=== PATIENT | female | born 1995 | race Hispanic/Latino ===

== ENCOUNTER → 2023-12-11 | Outpatient (CLI) | payer BC, SELFPAY ==
[2023-12-11 12:23] LABS: Absolute Lymphocyte Count 1.85 X10^3/uL (0.83-4.51); Basophil# 0.04 X10^3/uL; Basophil% 0.5 % (0-1); Eosinophil# 0.12 X10^3/uL; Eosinophils% 1.6 % (0-5); Hemoglobin 12.5 g/dL (12.0-15.0); Lymphocyte # 1.85 X10^3/ul (0.83-4.51); Lymphocyte % 24.7 % (19-41); Mean Corp Hgb Conc 32.9 g/dL (32-36); Mean Corpuscular Volume 94.3 fL (81-99); Mean Platelet Vol. 11.4 fl (6.2-12.0); Monocyte# 0.44 X10^3/uL; Monocyte% 5.9 % (0-10); NRBC Flagged by Analyzer 0 % (0-5); Neutrophil # 5.02 X10^3/uL (2.7-7.7); Platelet Count 281 K/mm3 (150-450); RBC Distribution Width CV 12.5 % (11.6-14.6); RBC Distribution Width SD 43.8 fl (35.1-43.9); Red Blood Count 4.03 M/mm3 (4.2-5.4); White Blood Count 7.5 K/mm3 (4.4-11.0)
[2023-12-11 12:54] LABS: AST(SGOT) 12 U/L (15-37); Alanine Aminotransfer ALT/SGPT 17 U/L (13-56); Albumin, Serum 3.4 g/dL (3.2-5.0); Alkaline Phosphatase 42 U/L (45-117); Anion Gap 9 (5-15); BUN 9 mg/dL (7-18); BUN/Creat Ratio 11.6 RATIO (10-20); Calcium,Total 9.3 mg/dL (8.5-10.1); Chloride 106 mmol/L (98-107); Cholesterol 204 mg/dL (200); Creatinine, Serum 0.78 mg/dL (0.55-1.02); EST Glomerular Filtration Rate 92 mL/min (>60); Est Glom Filt Rate - Afr Amer 112 mL/min (>60); Globulin 3.5 g/dL (2.2-4.2); Glucose 82 mg/dL (74-106); High Density Lipoprotein 77 mg/dL; Potassium 3.9 mmol/L (3.5-5.1); Protein, Total 6.9 g/dL (6.4-8.2); Sodium Level 138 mmol/L (136-145); Triglycerides 208 mg/dL; Very Low Density Lipoprotein 42 mg/dL (5-40)
== END | disposition home or self-care (01) ==
LOC: BIMLAB 09:50
PROVIDERS: PCP Internal Medicine; Visit Provider Internal Medicine
DX: Z30.41 Encounter for surveillance of contraceptive pills (principal); E78.1 Pure hyperglyceridemia
CPT/HCPCS: 36415; 80053; 80061; 85025

== ENCOUNTER 2024-08-24 08:19 | Day surgery (SDC) | payer BC, SELFPAY ==
[2024-08-24] VITALS (15 sets, daily range): BP systolic 103–134; BP diastolic 57–82; PULSE 65–97; RESP 15–18; TEMP 36.7–37.3; O2SAT 96–100; BMI 21.1
--- NOTE | 2024-08-24 08:30 | US_ITS ---
STUDY: ULTRASOUND OF THE FEMALE PELVIS - COMPLETE REASON FOR EXAM: Female, 29 years old. Right pelvic pain -- r/o torsion LMP: August 21, 2024. TECHNIQUE: Transvaginal TECHNICAL QUALITY: Adequate. COMPARISON: None. FINDINGS: The uterus is anteverted and is in a midline position. The uterus measures 8 cm x 5.7 cm x 4 cm. Normal uterine cervix. The endometrium measures 4 mm in thickness, and is hyperechoic. There is no demonstrated endometrial mass. There is no demonstrated myometrial mass. I.U.D. - The patient does not have an I.U.D. The right ovary is visualized. The right ovary measures 4.3 cm x 3.4 cm x 1.8 cm. There is no right ovarian cyst or ovarian mass. There is no visualized right adnexal mass or complex lesion. There is normal arterial and normal venous vascularity. The left ovary is visualized. The left ovary measures 2.9 cm x 3.4 cm x 2.3 cm. There is no left ovarian cyst or ovarian mass. There is no visualized left adnexal mass or complex lesion. There is normal arterial and normal venous vascularity. Small amount of free fluid is seen surrounding the right adnexa. US/Transvaginal Non- IMPRESSION: Small amount of free fluid is seen in the right adnexa. No evidence of torsion. Electronically Signed: Levi Campos MD at 9:51 EST ,
[2024-08-24] MEDS: Ondansetron 4 MG/2 ML Vial IV (08:38)
[2024-08-24] MEDS: Morphine 4 MG/ML Syringe IV (08:38)
[2024-08-24 08:54] LABS: Mucous, Urine 0 SEEN /hpf (<or=2+)
[2024-08-24 08:56] LABS: Absolute Lymphocyte Count 2.31 X10^3/uL (0.83-4.51); Absolute Neutrophil Count 13.3 X10^3/uL (2.0-7.7); Basophil# 0.06 X10^3/uL; Basophil% 0.4 % (0-1); Eosinophil# 0.24 X10^3/uL; Eosinophils% 1.4 % (0-5); Hematocrit 40.1 % (37-47); Hemoglobin 13.4 g/dL (12.0-15.0); Lymphocyte # 2.31 X10^3/ul (0.83-4.51); Lymphocyte % 13.8 % (19-41); Mean Corp Hgb Conc 33.4 g/dL (32-36); Mean Corpuscular Hgb 30.2 pg (27.0-32.0); Mean Corpuscular Volume 90.5 fL (81-99); Mean Platelet Vol. 10.7 fl (6.2-12.0); Monocyte# 0.82 X10^3/uL; Monocyte% 4.9 % (0-10); NRBC Flagged by Analyzer 0 % (0-5); Neutrophil # 13.26 X10^3/uL (2.7-7.7); Neutrophil % 79.1 % (47-70); Platelet Count 311 K/mm3 (150-450); RBC Distribution Width CV 12.1 % (11.6-14.6); RBC Distribution Width SD 39.8 fl (35.1-43.9); Red Blood Count 4.43 M/mm3 (4.2-5.4); White Blood Count 16.8 K/mm3 (4.4-11.0)
--- NOTE | 2024-08-24 08:58 | ED.VIS.GI ---
HPI HPI - GI History of Present Illness Chief Complaint: Abd Pain Informant: patient and spouse/S.O. Narrative Narrative: Presents with a similar worsening suprapubic pain and pain to the right awaken her at 2 in the morning. Day 3 of her menstrual period typically last 5 days. No similar pains in the past. No history of ovarian issues. No fever chills or sweats. Denies any abdominal surgeries. Denies past medical history. Denies urinary symptoms. Denies history of kidney stones. Prior similar symptoms: No PFSH PFSH Home Medications ?Medication ?Instructions ?Recorded ?Last Taken ?Type bismuth subsalicylate 262 mg/15 mL 524 mg PO Q1H PRN upset stomach 08/24/24 08/24/24 History oral suspension (Digestive Relief) drospirenone 3 mg-ethinyl 1 tab PO DAILY 08/24/24 08/24/24 History estradiol 0.03 mg tablet Allergy/AdvReac Type Severity Reaction Status Date / Time No Known Allergies Allergy Verified 08/24/24 08:22 Surgical History (Updated 08/24/24 @ 14:[address] Adrian Goodman MD) S/P rhinoplasty Social History Smoking Status: Never smoker ROS ROS ED Constitutional Constitutional ED: Denies chills, fever(s) or sweats Eyes Eyes: Denies change in vision ENT ENT ED: Denies dysphagia or sore throat Cardiovascular Cardiovascular: Denies chest pain, leg edema, palpitations or racing heartbeat Respiratory/Chest Respiratory/Chest: Denies cough, dyspnea or dyspnea on exertion Gastrointestinal Gastrointestinal: Reports abdominal pain; Denies diarrhea, nausea or vomiting Genitourinary Genitourinary ED: Denies dysuria, hematuria or urinary frequency Musculoskeletal Musculoskeletal: Denies back pain, extremity pain or neck pain Integumentary Denies rash or wounds Neurologic Neurologic: Denies headache(s), paresthesias or weakness EXAM Physical Exam Const Vital Signs: 08/24/24 08:22 08/24/24 10:35 08/24/24 12:10 Temperature 98.0 F 98.2 F Temperature Source Oral Oral Pulse Rate 70 74 71 Respiratory Rate 16 15 15 Blood Pressure 121/82 H 131/69 H 134/67 H Blood Pressure Mean 95 89 89 Pulse Ox 100 96 97 Oxygen Delivery Method Room Air Room Air Room Air 08/24/24 12:44 08/24/24 14:09 Temperature 98.1 F 98.1 F Temperature Source Pulse Rate 73 73 Respiratory Rate 15 15 Blood Pressure 126/79 H 126/79 H Blood Pressure Mean 94 Pulse Ox 99 99 Oxygen Delivery Method Room Air Positive well nourished and well developed Constitutional Narrative: Uncomfortable, nontoxic General Appearance ED: well developed HEENT Reports moist mucous membranes normocephalic and atraumatic Eyes EOMs intact bilaterally and conjunctivae normal General Eye ED: Yes normal appearance of both eyes Neck no lymphadenopathy and supple General: Negative for tenderness Chest Wall Chest: Negative for tenderness Resp normal respiratory effort and normal air movement Effort and Inspection: symmetric chest movement; Negative for respiratory distress Cardio regular rate, regular rhythm and no murmurs Peripheral Pulses: pulses 2+ throughout GI normal to inspection, nondistended, normoactive bowel sounds GI Narrative: Negative Campos's or McBurney's region tenderness. Palpation: Negative for guarding or rebound tenderness present Narrative: Tender suprapubic right pelvis on exam. Back/Spine no CVA tenderness and no thoracic nor lumbar tenderness Extremity normal to inspection General Extremety ED: Negative for edema or tenderness General Extremity: Negative for edema Neuro oriented x3 and no sensory deficits noted Sensorium / Orientation: awake and alert Skin no rashes or lesions noted and no wounds MDM MDM MDM Narrative Medical decision making narrative: Interventions / MDM: Differential diagnosis: Acute appendicitis, abdominal pain Diagnosis considered but do not suspect: Ovarian torsion however ultrasound negative. Kidney stone however CT negative My EKG interpretation: Sinus rate of 50, no ST changes. T wave version V1 V2. QTc 412. Imaging independently reviewed and interpreted by myself: Transvaginal ultrasound: Per radiologist mild adnexal free fluid no torsion. 1 view chest x-ray: No acute process. CT abdomen pelvis IV contrast: thickened and dilated appendix, mild pelvic free fluid. External documents reviewed: N/A Test considered but not ordered:N/A ED course: Patient pain suprapubic pelvis right pelvic region. Symptoms started at 2 AM. IV established for labs. Morphine and Zofran. Will send for transvaginal ultrasound rule out torsion. 1000: Labs white count 16.8. Creatinine 0.8. Urine 1+ bacteria with 10 occult blood. She is on her menstrual period. Her transvaginal ultrasound negative for torsion and there is small amount of free fluid right adnexa. Exam is more comfortable however is tender in that area. Will obtain CT abdomen pelvis for further evaluation. 1100: CT scan concerning for early appendicitis with thickening and dilation of the appendix. No perforations. Preop EKG chest x-ray additional labs ordered. Discussed with on-call surgeon Dr. Colón agrees with Abdirizak at this time. She will be kept NPO. Will give her a liter normal saline bolus per recommendation from general surgery. Re-evaluation: stable Disposition discussed with patient/family/significant other: Patient and significant other Case discussed with consulting clinician: General Surgery This note was generated with [employer] dictation software. It may contain incorrect words, spelling, and punctuation that were not noted in checking the note before signing. Lab Data Attestation: I reviewed the patient's lab results. Labs: Laboratory Results - last 24 hr 08/24/24 08/24/24 08/24/24 08:35 08:49 11:05 WBC 16.8 H RBC 4.43 Hgb 13.4 Hct 40.1 MCV 90.5 MCH 30.2 MCHC 33.4 RDW Std Deviation 39.8 RDW Coeff of Prudencio 12.1 Plt Count 311 MPV 10.7 Immature Gran % (Auto) 0.400 Neut % (Auto) 79.1 H Lymph % (Auto) 13.8 L [place] % (Auto) 4.9 Eos % (Auto) 1.4 Baso % (Auto) 0.4 Absolute Neuts (auto) 13.3 H Absolute Lymphs (auto) 2.31 Nucleated RBC % 0 PT 13.5 INR 1.0 APTT 29.8 Sodium 138 Potassium 3.7 Chloride 107 Carbon Dioxide 24.0 Anion Gap 7 BUN 6 L Creatinine 0.80 Estim Creat Clear Calc 102.78 Est GFR (MDRD) Af Amer 107 Est GFR (MDRD) Non-Af 88 BUN/Creatinine Ratio 7.5 L Glucose 88 Calcium 9.4 Serum , Qual NEGATIVE Urine Color Yellow Urine Clarity Clear Urine pH 7.0 Ur Specific [place] 1.005 Urine Protein Negative Urine Glucose (UA) Normal Urine Ketones Negative Urine Occult Blood 10 H Urine Nitrite Negative Urine Bilirubin Negative Urine Urobilinogen Normal Ur Leukocyte Esterase Negative Urine RBC 0-5 SEEN Urine WBC 0-5 SEEN Ur Squamous Epith Cells 0-5 SEEN Urine Bacteria 1+ Urine Mucus 0 SEEN Blood Type O POSITIVE Antibody Screen NEGATIVE Radiography Diagnostic Testing: Clinical Impression(s) from Imaging Studies Transvaginal US 08/24/24 08:30 IMPRESSION: Small amount of free fluid is seen in the right adnexa. No evidence of torsion. Electronically Signed: Levi Campos MD at 9:51 EST , Abdomen/Pelvis CT 08/24/24 10:02 IMPRESSION: Mild thickening and mildly dilated appendix as described. Small amount of free fluid is seen in the cul-de-sac. Clinical correlation and correlation with lab results recommended to rule out early appendicitis. Electronically Signed: Levi Campos MD at 10:39 EST , Chest X-Ray 08/24/24 11:12 IMPRESSION: Normal x-ray examination of the chest. Electronically Signed: Levi Campos MD at 11:30 EST , Discharge Plan Dx/Rx/DC Orders Clinical Impression: Acute appendicitis, Abdominal pain, Pelvic pain Disposition Disposition: Acute Care Hospital [facility] Discharge Date/Time: 08/24/24 13:05
[2024-08-24 09:08] LABS: Color, Urine Yellow (Yellow); Glucose, Dipstick Normal (Normal); Ketone-Dipstick Negative (Negative); Leukocyte Esterase-Dipstick Negative /ul (Negative); Nitrite-Dipstick Negative (Negative); Occult Blood-Urine 10 /ul (Negative); Protein-Dipstick Negative (Negative); Specific Gravity, Urine 1.005 (1.002-1.030); Urine Bilirubin Dipstick Negative (Negative); Urine Clarity Clear (Clear); Urine Urobilinogen Normal (Normal)
[2024-08-24 09:15] LABS: Internal QC Validated? YES +Cl - CLEAR BKGD; Pregnancy, Serum, hCG Quali. NEGATIVE Negative
[2024-08-24 09:17] LABS: White Blood Cells 0-5 SEEN /hpf (0-5)
[2024-08-24 09:18] LABS: Anion Gap 7 (5-15); BUN 6 mg/dL (7-18); BUN/Creat Ratio 7.5 RATIO (10-20); Calcium,Total 9.4 mg/dL (8.5-10.1); Chloride 107 mmol/L (98-107); EST Glomerular Filtration Rate 88 mL/min (>60); Est Glom Filt Rate - Afr Amer 107 mL/min (>60); Estimated Creatinine Clearance 102.78 ml/min; Glucose 88 mg/dL (74-106); Potassium 3.7 mmol/L (3.5-5.1); Sodium Level 138 mmol/L (136-145)
[2024-08-24 09:18] LABS: Bacteria 1+ /hpf (None Seen); Red Blood Cells-Urine 0-5 SEEN /hpf (0-5); Squamous Epithelial Cells - UA 0-5 SEEN /hpf (5-10)
--- NOTE | 2024-08-24 10:02 | CT_ITS ---
STUDY: CT ABDOMEN AND PELVIS WITH CONTRAST REASON FOR EXAM: Female, 29 years old. RLQ/pelvic pain RADIATION DOSAGE (If Supplied By Facility): CTDIvol = ( 12.11 ) mGy, DLP = ( 394.90 ) mGycm TECHNIQUE: Transaxial images were obtained from the dome of the diaphragm to the symphysis pubis without oral contrast. IV 75mL Isovue-300 was administered. Sagittal and coronal images were reconstructed. Individualized dose optimization techniques were used for this CT. COMPARISON: Comparison is made with prior sonogram done earlier in the day. FINDINGS: The visualized lung bases are unremarkable. The visualized portions of the heart are within normal limits. Normal liver. Normal gallbladder and extrahepatic biliary system. Normal spleen. Normal pancreas. Normal bilateral adrenal glands. Normal right kidney. Normal left kidney. Normal visualized stomach. Normal small intestine. Normal colon. There is a mild degree of a single [place] wall thickening of the appendix. It is slightly dilated measuring 8.5 mm. Early appendicitis should be ruled out. Small amount of free fluid is seen in the right side of the cul-de-sac. Normal abdominal aorta. Normal inferior vena cava. Normal retroperitoneum. Normal urinary bladder. Follicles are seen in the right ovary. There is a small umbilical hernia containing fat. Normal osseous structures. CT/Abdomen/Pelvis W IV Cont ONLY IMPRESSION: Mild thickening and mildly dilated appendix as described. Small amount of free fluid is seen in the cul-de-sac. Clinical correlation and correlation with lab results recommended to rule out early appendicitis. Electronically Signed: Levi Campos MD at 10:39 EST ,
--- NOTE | 2024-08-24 10:57 | EKG12_ITS ---
Test Reason : P Blood Pressure : */* mmHG Vent. Rate : 50 BPM Atrial Rate : 50 BPM P-R Int : 158 ms QRS Dur : 86 ms QT Int : 452 ms P-R-T Axes : 64 73 60 degrees QTcB Int : 412 ms Sinus bradycardia with sinus arrhythmia Otherwise normal ECG Confirmed by ANCELMO GRAF, YUKO ([id number]), manager editorial BLAKE AVILA ([id number]) on 08/25/2024 6:39:44 AM Referred By: Confirmed By: YUKO AG MD
--- NOTE | 2024-08-24 11:12 | RAD_ITS ---
STUDY: X-RAY CHEST REASON FOR EXAM: Female, 29 years old. Preop TECHNIQUE: Single AP portable view of the chest. COMPARISON: None. FINDINGS: The lungs are clear and expanded. There is no demonstrated pleural abnormality. Normal size heart. Normal mediastinum and sayda. Normal visualized pulmonary arteries. Normal visualized aortic arch and descending thoracic aorta. Normal visualized thoracic spine. Normal visualized ribs, clavicles, and shoulders. There is no demonstrated abnormality of the visualized soft tissue structures of the upper abdomen. RAD/Chest 1 View (Portable) IMPRESSION: Normal x-ray examination of the chest. Electronically Signed: Levi Campos MD at 11:30 [facility] ,
[2024-08-24 11:42] LABS: Prothrombin Time (Protime)PT. 13.5 SECONDS (11.7-14.9)
[2024-08-24 11:43] LABS: Partial Thromboplast Time 29.8 Seconds (24.1-36.2)
[2024-08-24] MEDS: Piperacil/Tazobactam 4.5 GM in 0.9% Normal Saline (100mL MB+) 100 ML IV (11:54)
--- NOTE | 2024-08-24 12:28 | HP.PCM.SX_ITS ---
HPI - General HPI Narrative DOROTEO PALMER, is a 29 F who presents with lower abdominal pain. The pain woke her up from sleep. She describes the pain as sharp in the right lower quadrant. She denies vomiting but she did get nauseated. She denies fevers or chills. PFSH Home Medications ?Medication ?Instructions ?Recorded ?Last Taken ?Type bismuth subsalicylate 262 mg/15 mL 524 mg PO Q1H PRN upset stomach 08/24/24 08/24/24 History oral suspension (Digestive Relief) drospirenone 3 mg-ethinyl 1 tab PO DAILY 08/24/24 08/24/24 History estradiol 0.03 mg tablet Allergy/AdvReac Type Severity Reaction Status Date / Time No Known Allergies Allergy Verified 08/24/24 08:22 Social History Smoking Status: Never smoker ROS Constitutional Constitutional: Denies anorexia, chills, fatigue or fever(s) ENT HEENT: Denies abnormal hearing Cardiovascular Cardiovascular: Denies chest pain Respiratory/Chest Respiratory/Chest: Denies cough or dyspnea Gastrointestinal Gastrointestinal: Reports abdominal pain and nausea; Denies constipation, diarrhea, dysphagia or vomiting Genitourinary Genitourinary: Denies change in urinary stream Musculoskeletal Musculoskeletal: Denies abnormal gait Integumentary Integumentary: Denies jaundice or new lesions Neurologic Neurologic: Denies abnormal gait or dizziness Psychiatric Psychiatric: Denies anxiety Hematologic/Lymphatic Hematologic/Lymphatic: Denies easy bleeding Vital Signs Vital Signs Vital Signs: 08/24/24 08:22 08/24/24 10:35 08/24/24 12:10 Temperature 98.0 F 98.2 F Temperature Source Oral Oral Pulse Rate 70 74 71 Respiratory Rate 16 15 15 Blood Pressure 121/82 H 131/69 H 134/67 H Blood Pressure Mean 95 89 89 Pulse Ox 100 96 97 Oxygen Delivery Method Room Air Room Air Room Air Weight Weight: 141 lb 1.533 oz Body Mass Index (BMI) 21.1 Physical Exam Const oriented x3 and no apparent distress Resp normal respiratory effort Cardio regular rate and regular rhythm GI soft to palpation Palpation: tender RLQ Extremity normal to inspection Results Lab / Micro Data 08/24/24 08:35 08/24/24 08:35 Labs: Laboratory Results - last 24 hr 08/24/24 08:35: WBC 16.8 H, RBC 4.43, Hgb 13.4, Hct 40.1, MCV 90.5, MCH 30.2, MCHC 33.4, RDW Std Deviation 39.8, RDW Coeff of Prudencio 12.1, Plt Count 311, MPV 10.7, Immature Gran % (Auto) 0.400, Neut % (Auto) 79.1 H, Lymph % (Auto) 13.8 L, [place] % (Auto) 4.9, Eos % (Auto) 1.4, Baso % (Auto) 0.4, Absolute Neuts (auto) 13.3 H, Absolute Lymphs (auto) 2.31, Nucleated RBC % 0, Sodium 138, Potassium 3.7, Chloride 107, Carbon Dioxide 24.0, Anion Gap 7, BUN 6 L, Creatinine 0.80, Estim Creat Clear Calc 102.78, Est GFR (MDRD) Af Amer 107, Est GFR (MDRD) Non-Af 88, BUN/Creatinine Ratio 7.5 L, Glucose 88, Calcium 9.4, Serum , Qual NEGATIVE 08/24/24 08:49: Urine Color Yellow, Urine Clarity Clear, Urine pH 7.0, Ur Specific [place] 1.005, Urine Protein Negative, Urine Glucose (UA) Normal, Urine Ketones Negative, Urine Occult Blood 10 H, Urine Nitrite Negative, Urine Bilirubin Negative, Urine Urobilinogen Normal, Ur Leukocyte Esterase Negative, Urine RBC 0-5 SEEN, Urine WBC 0-5 SEEN, Ur Squamous Epith Cells 0-5 SEEN, Urine Bacteria 1+, Urine Mucus 0 SEEN 08/24/24 11:05: PT 13.5, INR 1.0, APTT 29.8 Imaging Radiology Impression Transvaginal US 08/24/24 08:30 IMPRESSION: Small amount of free fluid is seen in the right adnexa. No evidence of torsion. Electronically Signed: Levi Campos MD at 9:51 EST , Abdomen/Pelvis CT 08/24/24 10:02 IMPRESSION: Mild thickening and mildly dilated appendix as described. Small amount of free fluid is seen in the cul-de-sac. Clinical correlation and correlation with lab results recommended to rule out early appendicitis. Electronically Signed: Levi Campos MD at 10:39 EST , Chest X-Ray 08/24/24 11:12 IMPRESSION: Normal x-ray examination of the chest. Electronically Signed: Leiv Campos MD at 11:30 EST , Assessment & Plan Assessment/Plan (1) Acute appendicitis: QUALIFIERS: Acute appendicitis type: unspecified acute appendicitis type Qualified Code(s): K35.80 - Unspecified acute appendicitis PLAN: The patient has acute appendicitis on CT scan. I reviewed her images with her and discussed this with her. I recommended laparoscopic appendectomy. I discussed the risks as well as benefits. I discussed the risks including but not limited to bleeding, infection, injury other organs such as the bowel, bladder, ureter. Patient understands the risks and is willing to proceed. The patient would like to be discharged home after surgery if possible so I will see how it looks when I take it out. If she is comfortable and feeling well after surgery we may discharge her home from PACU. Jorge Luis Colón MD Pager: [facility] [address] [place] [address], [address] [place] [address] Office:
[2024-08-24] MEDS: Lactated Ringers 1,000 ML 15 ML IV (13:29)
--- NOTE | 2024-08-24 14:04 | PRE.ANES_ITS ---
ASA Classification* ASA Classification ASA Classification: 1 Assessment & Plan Anesthesia* Anesthesia Assessment Anesthesia Assessment: Discussed sedation and/or anesthesia options, risks, benefits, and alternatives with patient/parents/legal guardian/POA. Questions invited. The patient/parents/legal guardian/POA seems to understand and agrees to proceed with anesthesia plan. Reviewed the physical assessment, medical history, allergy history and patient home medications list prior to surgery/procedure/anesthetic and documented any changes. Performed airway and anesthesia risk assessments. Anesthesia Type Anesthesia Type: General History Source History Obtained from:: Patient and Chart Anesthesia Focused Assessment* Temperature: 98.1 F Pulse Rate: 73 Blood Pressure: 126/79 Respiratory Rate: 15 Pulse Ox: 99 Oxygen Delivery Method: Room Air Airway Assessment Mouth opens: >3 cm Mallampati Score: III Teeth Condition: Intact Neck Range of motion (ROM): Full ROM Focused Labs Anesthesia Preop lab: CBC WBC 16.8 K/mm3 (4.4-11.0) H 08/24/24 08:35 RBC 4.43 M/mm3 (4.2-5.4) 08/24/24 08:35 Hgb 13.4 g/dL (12.0-15.0) 08/24/24 08:35 Hct 40.1 % (37-47) 08/24/24 08:35 Plt Count 311 K/mm3 (150-450) 08/24/24 08:35 CHEMISTRY Potassium 3.7 mmol/L (3.5-5.1) 08/24/24 08:35 Sodium 138 mmol/L (136-145) 08/24/24 08:35 BUN 6 mg/dL (7-18) L 08/24/24 08:35 Creatinine 0.80 mg/dL (0.55-1.02) 08/24/24 08:35 Glucose 88 mg/dL (74-106) 08/24/24 08:35 COAG PT 13.5 SECONDS (11.7-14.9) 08/24/24 11:05 Pre-Assessment Diagnosis/Proposed Procedure Planned Operative Procedure(s): Laparoscopic appendectomy Anesthesia History Anesthesia History - regulatory associate: Anesthesia History - regulatory associate Hx Hospitalization Any Problems With Anesthesia Cholinesterase deficiency You/Your Family Experience fever (hyperthermia) with Relationship Recent Exposure to Contagious Disease Does patient have nerve stimulator Patient instructed to have device shut off --Does patient have Pacemaker or ICD? When Was Last Pacemaker Check QUESTION #4 FULL TEXT: You/Your Family Experience fever (hyperthermia) with Anesthesia Last Oral Intake Last Oral intake: Last Oral Intake NPO since Meds taken in AM with sips of water? Meds patient instructed to take am of surgery Any additional information?: Yes NPO since: 09:00 (Patient water at 9 AM) Meds taken in AM with sips of water?: Yes PONV PONV - regulatory associate: PONV - regulatory associate Female HX of Motion Sickness HX of N/V After Surgery Non-Smoker Duration of Surgery greater than 60 minutes Number of Risk Factors PONV Score Height & Weight Height & Weight: Anesthesia: Height & Weight Height 5 ft 8.5 in 08/24/24 08:22 Weight: 64 kg 08/24/24 08:22 Body Mass Index (BMI) 21.1 08/24/24 08:22 Respiratory Assessment Respiratory Assessment - regulatory associate: Respiratory Tract Infection Hx - regulatory associate Hx Respiratory Tract Infection Any additional information?: Yes Hx Respiratory Tract Infection: No STOP Sleep Apnea STOP Sleep Apnea - regulatory associate: STOP Sleep Apnea - regulatory associate Hx Hypertension Hx Sleep Apnea CPAP BIPAP Do you snore loudly (louder than talking or can be heard Do you often feel tired/ fatigued/ sleepy during daytime? Has anyone observed you stop breathing during sleep? STOP Results QUESTION #5 FULL TEXT : Do you snore loudly (louder than talking or can be heard through closed doors)? 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 Specify any problems Hx of Preganancy in last 3 Months Nurse Filling Out Transfusion & Questions: Date: Time: Patient unable to answer at this time (ie. confused, unrespo /Reproduction History /Reproductive History - regulatory associate: /Reproductive Hx- regulatory associate Hx Now Gestational Age (in weeks): EDC: Hx Hx Para Hx Section SAB No 08/24/24 08:22 Active Medications Active Medications: Current Medications Generic Name Dose Route Start Last Admin Trade Name Freq PRN Reason Stop Dose Admin Lactated Ringer's 1,000 mls @ 15 mls/hr 08/24/24 13:30 08/24/24 13:29 IV 08/30/24 02:49 15 mls/hr .Q48H YI Administration Protocol PFSH Home Medications ?Medication ?Instructions ?Recorded ?Last Taken ?Type bismuth subsalicylate 262 mg/15 mL 524 mg PO Q1H PRN upset stomach 08/24/24 08/24/24 History oral suspension (Digestive Relief) drospirenone 3 mg-ethinyl 1 tab PO DAILY 08/24/24 08/24/24 History estradiol 0.03 mg tablet Allergy/AdvReac Type Severity Reaction Status Date / Time No Known Allergies Allergy Verified 08/24/24 08:22 Surgical History (Updated 08/24/24 @ 14:[address] Adrian Goodman MD) S/P rhinoplasty Social History Smoking Status: Never smoker Review of Systems (Anesthesia) ROS Narrative System reviewed and no additional complaints, except as documented.
--- NOTE | 2024-08-24 15:00 | APP_PTH ---
PATIENT: DOROTEO LAYTON LOC: [facility] [place] U#:[id number] AGE/SX: 29/ ROOM: RE08/24/[address]: Dr. Jorge Luis Colón MD : 1995 BED: DIS: 08/24/2024 SPEC #: [id number] RECD: 08/25/24 09:12 STATUS: JONATHON BARNEYJoe #: [id number] HOLLIS: 08/24/24 15:[address]: Jorge Luis Colón DEPT: SURGICAL PATHOLOGY RECD BY: Stefanie Ashraf ENTERED: 08/25/24 10:10 SP TYPE: APPENDIX OTHR DR: Dr. Ktety Pickett MD Tissues: Appendix, NOS Procedures: Surgery Specimen Level III HEADER OPERATION: Laparoscopic appendectomy PRE-OP DIAGNOSIS: Acute appendicitis TISSUE SUBMITTED: Appendix MICROSCOPIC DIAGNOSIS Appendix, appendectomy: Acute appendicitis and periappendicitis. 08/26/2024 MICROSCOPIC DESCRIPTION Slides are reviewed. GROSS DESCRIPTION Received in fixative is one container labeled with the patient's name and designated appendix. The specimen consists of J appendix measuring 7.0 cm in length and up to 0.6 cm in diameter. The attached periappendiceal adipose tissue measures up to 1.7 cm in width. The serosa is mildly congested. No obvious perforation is identified. The lumen is filled with a small amount of hemorrhagic material. No fecalith is identified. The entire appendix is submitted in three cassettes. Cassette 1 contains the tip and proximal portion. / LEXA: 08/25/2024 TC:2 CPT: 26789
[2024-08-24] MEDS: Bupiv/Epi 0.25% 30 ML Vial (15:38)
--- NOTE | 2024-08-24 15:45 | OP.PCM_ITS ---
Operative Report (Standard) Operative Information Surgery/Procedure Performed: Laparoscopic appendectomy Surgeon: Jorge Luis Colón Date of Procedure: 08/24/24 Procedure Start Time: 15:20 Procedure Stop Time: 15:41 Pre-Operative Diagnosis: Acute appendicitis Post-Operative Diagnosis: acute appendicitis Select all DRAINS/GRAFTS/IMPLANTS that apply: None Type of Anesthesia: General/Regional Estimated Blood Loss: 5 Specimen collected: Yes Description of specimen(s) removed: Appendix Description of surgery: The patient was brought into the operating room and general anesthesia was induced. The left arm was tucked and the abdomen was prepped and draped in usual sterile fashion. A small midline incision was made superior to the umbilicus and deepened to the level of the fascia. The fascia was elevated and incised. The peritoneum was also elevated and incised. A finger sweep was performed and a balloon trocar was placed into the abdomen and inflated. The abdomen was insufflated to 15 mmHg and the camera was inserted and the abdomen was inspected for any injuries upon entering the abdomen. There were none. The patient was placed in Trendelenburg position and a 5 mm ports placed in the left lower quadrant and suprapubic areas under direct visualization. Next using atraumatic bowel graspers the appendix was identified. The appendix was grasped and elevated and Enseal was used to take down the mesoappendix. A stapler was used to come across the base of the appendix. The appendix was then placed in Endo Catch bag and removed through the umbilical incision. The staple line was inspected and found to be hemostatic and intact. The 2 5 mm ports are removed under direct visualization. The balloon trocar was deflated and removed and all the air was removed from the abdomen. The umbilical incision fascia was closed with an 0 Vicryl [id number] suture. The incisions were then irrigated with saline and dried. Local anesthetic was injected into the incision sites. The skin incisions were then closed with interrupted 4-0 Monocryl suture and Steri- Strips. Bandages were applied and the patient was awoken and taken to PACU in stable condition. Patient tolerated the procedure well. Surgical Findings: Inflamed appendix Fire Investigation Lieutenant reservationist: No Complications Complications: No Admit VTE Documentation VTE Mechan Device Prophylaxis: SCD's
--- NOTE | 2024-08-24 15:48 | DCINST_ITS ---
Discharge Instructions Procedure Appendectomy Diet Discharge Diet: Light diet - advance as tolerated Activity Discharge Activity: May Not Drive (for 2-3 days or while taking narcotic pain medications.) May shower in (days): 1 Lifting Restrictions: 20 lbs for 2 weeks Dressing / Incision Call your doctor if your incision/area has: Continuous Slow Oozing, Sudden Increased Bleeding, Increased Pain/ Swelling, Increased Redness and Foul Smelling Discharge Call your doctor if you observe: Fever of 101 or Higher Suture Line Care: Avoid Pulling/Pushing and Avoid Pinching/Bending Remove Dressing in: 2 days Cleanse incision/area with: Soap & Water Additional Dressing/Incision Instructions:: Keep dressing clean and dry. Change or remove dressing in 2 days. Leave steri strips for 1 week. May protect with a gauze bandaid. Follow Up Care Please Follow Up With: Jorge Luis Colón MD When: Please call to schedule 2 week follow up appointment. [phone] Test Results: Test results from this visit will be discussed in further detail at your follow- up appointment, if applicable. Discharge Plan Admission Attending Provider: Jorge Luis Colón Primary Care Provider: Ketty Pickett Instructions Print Language: Chinese Discharge Orders/Prescriptions Prescriptions: New oxycodone 5 mg Tablet 5 - 10 mg PO Q4H PRN PRN (Reason: Pain Score 4-10) 5 Days Qty: 20 0RF No Action drospirenone-ethinyl estradiol 3-0.03 mg tablet 1 tab PO DAILY bismuth subsalicylate [Digestive Relief] 262 mg/15 mL suspension 524 mg PO Q1H PRN (Reason: upset stomach) Rx Instructions: do not exceed 8 doses in a 24 hour period Referrals / Follow Up: NOT,DEFINED [Non-Staff] - Disposition Disposition (needs filled in before D/C Order can be placed): Home, Self Care
--- NOTE | 2024-08-24 15:52 | PCM.POST.ANE ---
Anesthesia: Postop Eval I Current Vital Signs Temperature: 98.1 F Pulse Rate: 97 Blood Pressure: 112/63 Respiratory Rate: 18 Pulse Ox: 100 Assessment Airway patent: Yes Spontaneous unlabored respirations: Yes nausea: No Vomiting: No Anesthesia Complication: No Fluid Hydration Crystalloid volume administer (ml): 1,000 Total IV fluid infused: 1,000 Progress Note Anesthesia document: Postop Eval 1 completed: Yes
[2024-08-24] MEDS: oxyCODONE 5 MG Tablet PO (17:12)
--- NOTE | 2024-08-25 06:36 | POSTOPAN2_ITS ---
Anesthesia Postop Eval I Sum Postop Eval Completion status Anesthesia document: Postop Eval 1 completed: Yes Anesthesia Postop Eval I Summary Anesthesia Postop Eval I Summary: Anesthesia Postop Eval I: Assessment Summary Airway patent Yes 08/24/24 15:52 ROLLED SEAT [email or web address] Spontaneous unlabored Yes 08/24/24 15:52 ROLLED SEAT [email or web address] respirations Mental status nausea No 08/24/24 15:52 ROLLED SEAT [email or web address] Vomiting No 08/24/24 15:52 ROLLED SEAT [email or web address] Anesthesia Postop Eval I: Fluid Summary Crystalloid volume administer 1,000 08/24/24 15:52 ROLLED SEAT [email or web address] (ml) Colloids volume administered ( ml) Blood Product volume administered (ml) Total IV fluid infused 1,000 08/24/24 15:52 ROLLED SEAT [email or web address] Anesthesia Postop Eval I: Summary Notes Anesthesia Complication No 08/24/24 15:52 ROLLED SEAT [email or web address] Anesthesia Complication Comment: Post-operative progress note Anesthesia: Postop Eval II Evaluation Mental status: Awake Pain Level: 0 nausea: No Vomiting: No
--- NOTE | 2024-08-25 06:36 | PCM.POSTANE2 ---
Anesthesia Postop Eval I Sum Postop Eval Completion status Anesthesia document: Postop Eval 1 completed: Yes Anesthesia Postop Eval I Summary Anesthesia Postop Eval I Summary: Anesthesia Postop Eval I: Assessment Summary Airway patent Yes 08/24/24 15:52 [email or web address] Spontaneous unlabored Yes 08/24/24 15:52 PIGGYBACK [email or web address] respirations Mental status nausea No 08/24/24 15:52 PIGGYBACK [email or web address] Vomiting No 08/24/24 15:52 PIGGYBACK [email or web address] Anesthesia Postop Eval I: Fluid Summary Crystalloid volume administer 1,000 08/24/24 15:52 [email or web address] (ml) Colloids volume administered ( ml) Blood Product volume administered (ml) Total IV fluid infused 1,000 08/24/24 15:52 [email or web address] [email or web address] Anesthesia Postop Eval I: Summary Notes Anesthesia Complication No 08/24/24 15:52 [email or web address] [email or web address] Anesthesia Complication Comment: Post-operative progress note Anesthesia: Postop Eval II Evaluation Mental status: Awake Pain Level: 0 nausea: No Vomiting: No
== END 2024-08-24 18:13 | disposition home or self-care (01) ==
LOC: ED 11:10 → SDC 12:06 → ACINP 12:07
PROVIDERS: Emergency Provider Emergency Medicine; PCP Internal Medicine; Visit Provider Surgery
PROC: 0DTJ4ZZ Resection of Appendix, Percutaneous Endoscopic Approach (ICD-10-PCS; CPT 44970; principal; 2024-08-24 14:40)
DX: K35.80 Unspecified acute appendicitis (principal)
CPT/HCPCS: 44970; 00840; 71045; 74177; 76830; 80048; 81001; 84703; 85025; 85610; 85730; 86850; 86900; 86901; 88304; 93005; 93976; 99283; J7040; J7120; Q9967; A4216; C1760; J2405

== ENCOUNTER → 2025-02-15 | Outpatient (CLI) | payer BC, SELFPAY ==
[2025-02-15 12:31] LABS: Absolute Neutrophil Count 3.9 X10^3/uL (2.0-7.7); Basophil# 0.03 X10^3/uL; Basophil% 0.5 % (0-1); Eosinophil# 0.09 X10^3/uL; Eosinophils% 1.4 % (0-5); Hematocrit 38.7 % (37-47); Hemoglobin 12.8 g/dL (12.0-15.0); Lymphocyte % 30.5 % (19-41); Mean Corp Hgb Conc 33.1 g/dL (32-36); Mean Corpuscular Hgb 29.4 pg (27.0-32.0); Mean Corpuscular Volume 88.8 fL (81-99); Mean Platelet Vol. 11.5 fl (6.2-12.0); Monocyte# 0.57 X10^3/uL; Monocyte% 8.7 % (0-10); NRBC Flagged by Analyzer 0 % (0-5); Neutrophil # 3.86 X10^3/uL (2.7-7.7); Neutrophil % 58.7 % (47-70); Platelet Count 288 K/mm3 (150-450); RBC Distribution Width CV 10.9 % (11.6-14.6); RBC Distribution Width SD 35.5 fl (35.1-43.9); Red Blood Count 4.36 M/mm3 (4.2-5.4); White Blood Count 6.6 K/mm3 (4.4-11.0)
[2025-02-15 12:50] LABS: ALB/GLOB Ratio 1.5 RATIO (0.9-2.4); AST(SGOT) 13 U/L (<=31); Alanine Aminotransfer ALT/SGPT 16 U/L (<=34); Albumin, Serum 4.2 g/dL (3.5-5.0); Alkaline Phosphatase 73 U/L (35-104); Anion Gap 10 (5-15); BUN 11 mg/dL (4-19); BUN/Creat Ratio 20.1 RATIO (10-20); Calcium,Total 10.2 mg/dL (7.6-11.0); Carbon Dioxide 22.6 mmol/L (21.0-32.0); Chloride 105 mmol/L (98-108); Creatinine, Serum 0.56 mg/dL (0.70-1.20); EST Glomerular Filtration Rate 125 (>60); Globulin 2.8 g/dL (2.2-4.2); Glucose 93 mg/dL (70-99); Potassium 4.7 mmol/L (3.3-5.1); Protein, Total 7.1 g/dL (5.9-8.4); Sodium Level 138 mmol/L (133-145); Thyroid Stim Hormone (TSH) < 0.005 uIU/mL (0.300-4.200)
== END | disposition home or self-care (01) ==
LOC: BIMLAB 10:50
PROVIDERS: PCP Internal Medicine; Referring Provider Internal Medicine; Visit Provider Internal Medicine
DX: R00.2 Palpitations (principal)
CPT/HCPCS: 36415; 80053; 84439; 84443; 84482; 85025

== ENCOUNTER → 2025-02-20 | Outpatient (CLI) | payer SELFPAY, BC ==
--- NOTE | 2025-02-20 10:50 | US_ITS ---
PROCEDURE: THYROID 02/20/2025 REASON FOR EXAM: ABNORMAL THYROID FUNCTION/HYPERTHYROIDISM TECHNIQUE: High-frequency thyroid ultrasound, including grayscale and color-flow images. REFERENCE LINKS: TI-RADS Chart: [email or web address] TI-RADS Calculator Tool with Reference Images: [email or web address] COMPARISON: None FINDINGS: Right thyroid lobe size: 5.3 cm x 2 cm x 1.7 cm Left thyroid lobe size: 5.4 cm x 1.6 cm x 1.7 cm Isthmus: 0.5 cm Background parenchymal echotexture is heterogeneous Nodules: Multiple bilateral small predominantly cystic nodule seen throughout both lobes of the thyroid suggestive of multinodular changes. US/Thyroid IMPRESSION: Findings suggestive of enlarged thyroid with multiple nodular densities bilater ally. Correlation with nuclear medicine uptake and thyroid scan recommended. RECOMMENDATION: Based on most suspicious nodule. Nodule size = largest diameter Only evaluate nodule if =>5 mm. Growth > 20% in 2 dimensions = worsening. Follow up to 4 nodules. Recommend biopsy for no more than 2 nodules. Reading Location: [facility]
== END | disposition home or self-care (01) ==
PROVIDERS: PCP Internal Medicine; Referring Provider Internal Medicine; Visit Provider Internal Medicine
DX: E05.90 Thyrotoxicosis, unspecified without thyrotoxic crisis or storm (principal); R94.6 Abnormal results of thyroid function studies
CPT/HCPCS: 76536

== ENCOUNTER → 2025-03-09 | Outpatient (CLI) | payer BC, SELFPAY ==
[2025-03-09 12:54] LABS: Free T3 5.6 pg/mL (2.18-3.98); Thyroid Stim Hormone (TSH) 0.006 uIU/mL (0.300-4.200)
[2025-03-11 08:08] LABS: Thyroid Peroxidase AB 365 IU/mL (0-34)
== END | disposition home or self-care (01) ==
LOC: BIMLAB 07:58
PROVIDERS: PCP Internal Medicine; Referring Provider Internal Medicine Endocrinology, Diabetes & Metabolism; Visit Provider Internal Medicine Endocrinology, Diabetes & Metabolism
DX: E05.90 Thyrotoxicosis, unspecified without thyrotoxic crisis or storm (principal)
CPT/HCPCS: 36415; 84439; 84443; 84481; 86376

== ENCOUNTER → 2025-03-29 | Outpatient (CLI) | payer BC, SELFPAY ==
[2025-03-29 12:55] LABS: Free T3 3.3 pg/mL (2.18-3.98); Thyroid Stim Hormone (TSH) 0.006 uIU/mL (0.300-4.200)
== END | disposition home or self-care (01) ==
LOC: BIMLAB 08:36
PROVIDERS: PCP Internal Medicine; Referring Provider Internal Medicine Endocrinology, Diabetes & Metabolism; Visit Provider Internal Medicine Endocrinology, Diabetes & Metabolism
DX: E05.00 Thyrotoxicosis with diffuse goiter without thyrotoxic crisis or storm (principal)
CPT/HCPCS: 36415; 84439; 84443; 84481

== ENCOUNTER → 2025-04-09 | Outpatient (CLI) | payer BC, SELFPAY ==
[2025-04-09 13:25] LABS: Free T3 3.5 pg/mL (2.18-3.98); Thyroid Stim Hormone (TSH) 0.008 uIU/mL (0.300-4.200)
== END | disposition home or self-care (01) ==
LOC: BIMLAB 10:28
PROVIDERS: PCP Internal Medicine; Referring Provider Internal Medicine Endocrinology, Diabetes & Metabolism; Visit Provider Internal Medicine Endocrinology, Diabetes & Metabolism
DX: E05.00 Thyrotoxicosis with diffuse goiter without thyrotoxic crisis or storm (principal)
CPT/HCPCS: 36415; 84439; 84443; 84481

== ENCOUNTER → 2025-04-21 | Outpatient (CLI) | payer BC, SELFPAY ==
[2025-04-26 16:09] LABS: HPV APTIMA, High Risk Negative (Negative)
== END | disposition home or self-care (01) ==
PROVIDERS: PCP Internal Medicine; Referring Provider Advanced Practice Midwife; Visit Provider Advanced Practice Midwife
DX: Z12.4 Encounter for screening for malignant neoplasm of cervix (principal)
CPT/HCPCS: 87624; 88175; G0145

== ENCOUNTER → 2025-05-10 | Outpatient (CLI) | payer BC, SELFPAY ==
[2025-05-10 13:34] LABS: Free T3 2.5 pg/mL (2.18-3.98)
--- OUTSIDE RECORDS SUMMARY | 2025-05-10 20:29 | XMS RPT_ITS | CCD ---
Author Organization [facility] CliniSysd Care Team Providers Care Public Speaking Professor Name Role Phone Dr. Ketty Pickett Attending Provider [phone] Nieves GRAF, Dr. Hdez Primary Care Provider [phone] Nieves GRAF, Dr. Hdez Referring Provider Juan GRAF, Dr. Vaughan Attending Provider [phone] Juan GRAF, Dr. Vaughan Primary Care Provider Juan GRAF, Dr. Vaughan Referring Provider [phone] King HOMAR, Dr. Shaw Attending Provider Dr. Colin Jim MD Referring Provider Amilcar GRAF, Dr. Vallejo Attending Provider Stacey Marquis CNM Attending Provider Stacey Marquis CNM Referring Provider Ramon ENGINEERED WOOD DESIGNER-CInés Attending Provider [phone] Oleghe, Efewongbe Primary Care Unavailable Colin Jim Referring Unavailable Colin Jim Attending Unavailable Oleghe, Efewongbe Primary Care Unavailable Oleghe, Efewongbe Referring Unavailable Oleghe, Efewongbe Attending Unavailable Oleghe, Efewongbe Primary Care Unavailable Oleghe, Efewongbe Referring Unavailable Stacey Marquis Attending Unavailable Oleghe, Efewongbe Primary Care Unavailable Oleghe, Efewongbe Referring Unavailable Inés Navarro Attending Unavailable Oleghe, Efewongbe Primary Care Unavailable Oleghe, Efewongbe Referring Unavailable Genevieve Fitzgerald Attending Unavailable Oleghe, Efewongbe Primary Care Unavailable Hernán, Colin Referring Unavailable Hernán, Colin Attending Unavailable Oleghe, Efewongbe Primary Care Unavailable Oleghe, Efewongbe Referring Unavailable Hernán, Colin Attending Unavailable Oleghe, Efewongbe Primary Care Unavailable Oleghe, Efewongbe Referring Unavailable Oleghe, Efewongbe Attending Unavailable Oleghe, Efewongbe Primary Care Unavailable Oleghe, Efewongbe Referring Unavailable Oleghe, Efewongbe Attending Unavailable Jorge Luis Colón Attending Unavailable Fordyce, Ketty Primary Care Unavailable Oleghe, Efewongbe Primary Care Unavailable Oleghe, Efewongbe Referring Unavailable Oleghe, Efewongbe Attending Unavailable Jorge Luis Colón Consulting Unavailable Fordyce, Ketty Primary Care Unavailable CalabrJorge Luis cortes Attending Unavailable Fordyce, Ketty Referring Unavailable Fordyce, Ketty Primary Care Unavailable CalabrJorge Luis cortes Attending Unavailable Fordyce, Ketty Primary Care Unavailable Nieves, Ketty Referring Unavailable Oleghe, Efewongbe Attending Unavailable Oleghe, Efewongbe Primary Care Unavailable Hernán, Colin Referring Unavailable Hernán, Colin Attending Unavailable Oleghe, Efewongbe Primary Care Unavailable Hernán, Colin Referring Unavailable Hernán, Colin Attending Unavailable Stacey Marquis Referring Unavailable Oleghe, Efewongbe Primary Care Unavailable Stacey Marquis Attending Unavailable Allergies Allergy Classification Reported Allergen(s) Allergy Type Date of Onset Reaction(s) Facility (10 sources) cat dander; Translations: [cat dander] Allergy to substance 12-11-2023 Other [facility] Comment on above: inflammation of eyes , and nose Medications Current Medications Medication Drug Class(es) Dates Sig (Normalized) Sig (Original) adapalene (8 sources) Retinoid Start: 02-15-2025 Adapalene 0.3 % gel Active 1 NMA TOPICAL EVERY EVENING 45 February 15, 2025 12:00am Start: 02-15-2025 Adapalene 0.3 % gel Active 1 NMA TOPICAL EVERY EVENING 45 February 15, 2025 12:00am clindamycin 0.01 mg/mg topical gel (8 sources) Lincosamide Antibacterial Start: 02-15-2025 Clindamycin Phosphate 1 % gel Active 1 NMA TOPICAL every day in the morning and at bedtime 60 February 15, 2025 12:00am methIMAzole 5 mg oral tablet (20 sources) Thyroid Hormone Synthesis Inhibitor Start: 03-09-2025 take 3 tablets by mouth once daily Methimazole 5 mg tablet Active 15 mg PO daily 90 March 09, 2025 1:03pm Start: 02-22-2025 End: 03-09-2025 take 1 tablet by mouth twice daily Methimazole 5 mg tablet Discontinued 5 mg PO TWICE A DAY 60 February 22, 2025 11:48am March 09, 2025 1:04pm Start: 02-17-2025 End: 02-22-2025 take 1 tablet by mouth once daily Methimazole 5 mg tablet Discontinued 5 mg PO daily 30 February 17, 2025 12:00am February 22, 2025 11:49am Mileva (1 source) Start: 12-11-2023 Mileva Active PO DAILY December 11, 2023 12:00am Completed/Discontinued Medications Medication Drug Class(es) Dates Sig (Normalized) Sig (Original) bismuth subsalicylate 17.5 mg/ml oral suspension (8 sources) Bismuth Start: 08-24-2024 End: 02-22-2025 Bismuth Subsalicylate (Digestive Relief) 262 mg/15 mL suspension Discontinued 524 mg PO Q1H as needed for upset stomach August 24, 2024 1:00am February 22, 2025 10:18am do not exceed 8 doses in a 24 hour period Drospirenone-Ethinyl Estradiol (20 sources) Progestin, Estrogen Start: 10-12-2024 End: 02-15-2025 take 1 tablet by mouth once daily Drospirenone-Ethinyl Estradiol 3-0.03 mg tablet Discontinued 1 {tbl} PO DAILY 84 0 October 12, 2024 12:00pm February 15, 2025 8:55am Uses oral contraceptives Encounter for surveillance of contraceptive pills Start: 10-12-2024 End: 02-15-2025 Drospirenone-Ethinyl Estradi ol 3-0.03 mg tablet Discontinued 1 {tbl} PO DAILY 84 October 12, 2024 12:00pm February 15, 2025 8:55am Start: 08-24-2024 End: 02-15-2025 Drospirenone-Ethinyl Estradi ol 3-0.03 mg tablet Discontinued 1 {tbl} PO DAILY August 24, 2024 1:00am February 15, 2025 8:55am Start: 01-14-2024 End: 10-12-2024 take 1 tablet by mouth once daily Drospirenone-Ethinyl Estradiol 3-0.03 mg tablet Discontinued 1 {tbl} PO DAILY 10 03January 14, 2024 4:39pm October 12, 2024 12:01pm Uses oral contraceptives Encounter for surveillance of contraceptive pills Start: 01-14-2024 End: 10-12-2024 Drospirenone-Ethinyl Estradi ol 3-0.03 mg tablet Discontinued 1 {tbl} PO DAILY January 14, 2024 4:39pm October 12, 2024 12:01pm Start: 12-11-2023 End: 01-14-2024 take 1 tablet by mouth once daily Drospirenone-Ethinyl Estradiol 3-0.03 mg tablet Discontinued 1 {tbl} PO DAILY December 11, 2023 1:00am January 14, 2024 4:40pm Uses oral contraceptives Encounter for surveillance of contraceptive pills Start: 12-11-2023 End: 01-14-2024 Drospirenone-Ethinyl Estradi ol 3-0.03 mg tablet Discontinued 1 {tbl} PO DAILY December 11, 2023 1:00am January 14, 2024 4:40pm Start: 12-11-2023 take 1 tablet by [facility] once daily Drospirenone-Ethinyl Estradiol Active 1 TABLET PO DAILY December 11, 2023 12:00am Mileva 35 mg (8 sources) Start: 12-11-2023 End: 02-15-2025 take 35 mg by mouth once daily Mileva 35 mg Discontinued PO DAILY December 11, 2023 1:00am February 15, 2025 8:55am oxyCODONE hydrochloride 5 mg oral tablet (8 sources) Opioid Agonist Start: 08-24-2024 End: 02-15-2025 take 5-10 mg by mouth every four hours as needed for pain Oxycodone 5 mg Tablet Discontinued 5 - 10 mg PO EVERY 4 HOURS NEEDED as needed for Pain Score 4-10 20 5 0 August 24, 2024 February 15, 2025 8:55am Acute appendicitis Unspecified acute appendicitis Problems Active Problems Problem Classification Problem Date Documented Date Episodic/Chronic Administrative/social admission (1 source) Persons encountering health services in other specified circumstances; Translations: [Other reasons for seeking consultation] 12-11-2023 Episodic Allergic reactions (9 sources) Allergic condition; Translations: [Allergy, unspecified, initial encounter] 12-11-2023 Episodic Asthma (9 sources) Asthma; Translations: [Unspecified asthma, uncomplicated] 12-11-2023 Chronic Cardiac dysrhythmias (18 sources) Palpitations; Translations: [Palpitations] Onset: 02-17-2025 02-15-2025 Episodic Contraceptive and procreative management (20 sources) Encounter for surveillance of contraceptive pills; Translations: [Surveillance of contraceptive pill] Onset: 04-21-2025 12-11-2023 Episodic Disorders of lipid metabolism (1 source) Pure hyperglyceridemia; Translations: [Pure hyperglyceridemia] 12-11-2023 Chronic Immunizations and screening for infectious disease (1 source) Encounter for immunization; Translations: [Need for prophylactic vaccination and inoculation against unspecified single disease] 12-11-2023 Episodic Mood disorders (2 sources) Depressive disorder; Translations: [Depression] 05-10-2025 Chronic Comment on above: PHQ9 done 11 GAD7 do ne 9. Pt follows [facility] for therapy. Other circulatory disease (16 sources) Carotid bruit; Translations: [Other specified symptoms and signs involving the circulatory and respiratory systems] 02-15-2025 Episodic Other circulatory disease (2 sources) Other specified symptoms and signs involving the circulatory and respiratory systems; Translations: [Other specified symptoms and signs involving the circulatory and respiratory systems] Onset: 02-15-2025 Episodic Other connective tissue disease (1 source) Other symptoms and signs involving the musculoskeletal system; Translations: [Other symptoms involving head and neck] 12-11-2023 Episodic Other non-traumatic joint disorders (1 source) Stiffness of unspecified ankle, not elsewhere classified; Translations: [Stiffness of joint, not elsewhere classified, ankle and foot] 12-11-2023 Episodic Other screening for suspected conditions (not mental disorders or infectious disease) (2 sources) Thyroid function tests abnormal; Translations: [Abnormal results of thyroid function studies] Onset: 04-28-2025 02-15-2025 Episodic Other skin disorders (16 sources) Acne; Translations: [Acne, unspecified] 02-15-2025 Episodic Thyroid disorders (17 sources) Hyperthyroidism; Translations: [Thyrotoxicosis, unspecified without thyrotoxic crisis or storm] Onset: 03-16-2025 02-15-2025 Chronic Unclassified (20 sources) General counseling and advice for procreative management; Translations: [Z31.69 - Encounter for other general counseling and advice on procreation] Past or Other Problems Problem Classification Problem Date Documented Da te Episodic/Chronic Abdominal pain (17 sources) Pain in pelvis; Translations: [Pelvic and perineal pain] Onset: 09-23-2024 09-04-2024 Episodic Appendicitis and other appendiceal conditions (9 sources) Acute appendicitis; Translations: [Unspecified acute appendicitis] Onset: 09-23-2024 09-04-2024 Episodic Results Test Name Value Interpretation Reference Range Facility Free T3on 05-10-2025 Free T3 [Mass/Vol] 2.5 pg/mL Normal 2.18-3.[address] [facility] Comment on above: Performed By: #### L 506.0400, L501.04905, L501.9520 #### [facility] [address] [place], [place], [address] Internal Medicine Office Vis iton 05-10-2025 Internal Medicine Office Visit [facility] [place] [address] [place] [address] OFFICE VISIT Date of Service: 05/10/25 MR#: [id number] Acct: [id number] Name: NOY LAYTON Rep #: [id number] : 1995 Provider: HUDSON jarrett Age/Sex: 30/F Location[facility] Status: Signed Intake Vital Signs 04/21/25 08:27 05/10/25 09:22 Height 5 ft 8 in 5 ft 8 in Weight: 142 lb BMI 21.6 BP 106/54 L Blood Pressure Location Lt brachial Position Sitting Respiration 16 Pulse 86 Pulse Source Monitor Temp 98.7 F Temp Source Temporal Pulse Oximetry (%) 97 Oxygen Delivery Method room air Intake Visit Reasons: ACUTE- DEPRESSION Chief Complaint: depression Washing Machine Loader Required: No Is patient in pain?: No Allergies cat dander Allergy (Mild, Verified 05/10/25 09:06) Other Medications ???Medication ???Instructions ???Recorded ???Confirmed ???Type adapalene 0.3 % topical gel 1 applic topical QPM #45 grams 03/0705/10/25 Rx clindamycin phosphate 1 % topical 1 applic topical QAM AND QHS #60 02/15/25 05/10/25 Rx gel grams methimazole 5 mg tablet 15 mg (3 x 5 mg) PO QDAY #90 tabs 03/09/25 05/10/25 Rx sertraline 50 mg tablet (Zoloft) 50 mg PO QDAY #30 tabs 05/10/25 Rx Nurse's Note: Pt states that she was diagnosed in october of this year w/ depression. She Saw Polly Cody a psychologist through online benefit through employer at [employer]. Pt has not followed w/ her in a couple of months as she graduated the program Pt feels in February when she got the dx of graves disease the depression came back. Pt was not on any meds in the past, pt states that she has lack of motivation to do anything even things she typically enjoys doing, she has issues w/ racing thoughts and getting to sleep, she has crying spells out of nowhere. pt Has an upcoming appointment to see the phycologist again, but she does not see a shed workers supervisor to prescribe meds and would like pcp to manage. Pt has upcoming appointment w/ Dr. Jim as she is not certain if it is caused to meds for graves disease. [facility] Medical History Thyrotoxicosis due to Graves' disease Acne Pre-conception counseling Bruit of left carotid artery Palpitations Acute appendicitis Abdominal pain Pelvic pain Dislocated jaw Vision problems High triglycerides Allergies Rib fracture Asthma Surgical History History of laparoscopic appendectomy No pertinent past surgical history S/P rhinoplasty Family History (Updated 05/10/25 @ 09:07 by Amanda Campa MA) Mother Asthma PVC (premature ventricular contraction) Brother Asthma Arrhythmia afib Grandmother Hypertension Grandmother Hypertension Father Hepatitis Social History adopted: No household members: spouse housing: house number of children: 0 current occupational status: employed current occupation: [employer] current occupational exposures/hazards: No pets and animals: No leisure activities: other history of recent travel: No sexually active: Yes Smoking Status: Never smoker Electronic Cigarette Use: not used second hand exposure: No alcohol intake: current alcohol intake frequency: a few times a month substance use type: does not use well-balanced diet: daily or most days caffeine: No eating out: 1-3 times/week during the past year weight has: remained stable frequency: 3-4 times per week seatbelt use: always do you feel safe at home: Yes additional social history: - [employer] Questionnaire PQH-9 BMS Over the last 2 weeks, how often have you been bothered by any of the following problems? 1. Little interest or pleasure in doing things: nearly every day 2. Feeling down, depressed, or hopeless: nearly every day 3. Trouble falling or staying asleep, or sleeping too much: several days 4. Feeling tired or having little energy: nearly every day 5. Poor appetite or overeating: not at all 6. Feeling bad about yourself - or that you are a failure or have let yourself and your family down: several days 7. Trouble concentrating on things, such as reading the newspaper or watching television: nearly every day 8. Moving or speaking so slowly that other people could have noticed? - Or the opposite - being so fidgety or restless that you have been moving around a lot more than usual: not at all 9. Thoughts that you would be better off or of hurting yourself in some way: not at all Total score: 14 If you checked off any problems, how difficult have these problems made it for you to do your work, take care of things at home, or get along with other people?: somewhat di (more content not included)... Normal [facility] T4 Free Directon 05-10-2025 T4 FREE DIRECT 0.80 ng/dL Normal 0.76-1.46 [facility] Comment on above: Performed By: #### L 506.0400, L501.73785, L501.9520 #### [facility] [address] [place], [address] Thyroid Stim Hormone (TSH)on 05-10-2025 TSH 0.361 uIU/mL Normal 0.300-4.200 [facility] Comment on above: Performed By: #### L 506.0400, L501.73403, L501.9520 #### [facility] [address] [place], [address] PAP IG HPV APTIMA 16/18,45on 04-26-2025 ADEQ Comment Normal . [facility] Comment on above: Order Comment: Speci men Comment: [id number] Specimen Comment: No. of containers..01 ThinPrep Vial Result Comment: Sati sfactory for evaluation. No endocervical component is identified. Performed By: #### L 7400.0280 #### [facility] [address] [place], [address] COMM . Normal . [facility] Comment on above: Order Comment: Speci men Comment: [id number] Specimen Comment: No. of containers..01 ThinPrep Vial Performed By: #### L 7400.0280 #### [facility] [address] [place], [address] COMMENT Comment Normal . [facility] Comment on above: Order Comment: Speci men Comment: [id number] Specimen Comment: No. of containers..01 ThinPrep Vial Result Comment: This liquid based ThinPrep(R) pap test was screened with the use of an image guided system. Performed By: #### L 7400.0280 #### [facility] [address] [place], [address] DIAG Comment Normal . [facility] Comment on above: Order Comment: Speci men Comment: [id number] Specimen Comment: No. of containers..01 ThinPrep Vial Result Comment: NEGA TIVE FOR INTRAEPITHELIAL LESION OR MALIGNANCY. Performed By: #### L 7400.0280 #### [facility] [address] [place], [place], [address] [phone] HPV APTIMA, HR Negative Normal Negative [facility] Comment on above: Order Comment: Speci men Comment: [id number] Specimen Comment: No. of containers..01 ThinPrep Vial Result Comment: This nucleic acid amplification test detects fourteen high- risk HPV types (16,18,31,33,35,39,45,51,52,56,58,59,66,68) without differentiation. Performed By: #### L 7400.0280 #### [facility] [address] [place], [place], [address] HPV Denisa Rfx Comment Normal . [facility] Comment on above: Order Comment: Speci men Comment: [id number] Specimen Comment: No. of containers..01 ThinPrep Vial Result Comment: Crit eria not met, HPV Genotype not performed. Performed at: - [address] [id number] Legislative Director: Kaci Boone MD, Phone: [phone] Performed at: = - [address] [id number] Legislative Director: Kaci Boone MD, Phone: [phone] Performed By: #### L 7400.0280 #### [facility] [address] [place], [place], [id number] PAPSMR Comment Normal . [facility] Comment on above: Order Comment: [facility] Comment: [id number] Specimen Comment: No. of containers..01 ThinPrep Vial Result Comment: The Pap smear is a screening test designed to aid in the detection of premalignant and malignant conditions of the uterine cervix. It is not a diagnostic procedure and should not be used as the sole means of detecting cervical cancer. Both false-positive and false-negative reports do occur. Performed By: #### L 7400.0280 #### [facility] [address] [place], [address] PERFORM Comment Normal . [facility] Comment on above: Order Comment: Speci men Comment: [id number] Specimen Comment: No. of containers..01 ThinPrep Vial Result Comment: Ry Villanueva, Wood Veneer Taper (ASCP) Performed By: #### L 7400.0280 #### [facility] [address] [place], [address] Cervical or vaginal specimen microscopic examination by liquid based cytology (reportOrdered By: Stacey Marquis on 04-21-2025 Cytology report Cyto stain.thin prep Doc (Cvx/Vag) Comment . [facility] Comment on above: Criteria not met, HP V Genotype not performed.Performed at: [facility] [address] [id number] Director: Kaci Boone MD, Phone: [phone] at: =[facility] [address] [id number] Director: Kaci Boone MD, Phone: [phone] Cervical or vagninal specime n microscopic examination by cytology stain (reported asOrdered By: Stacey Marquis on 04-21-2025 Cytology report Cyto stain Doc (Cvx/Vag) Comment . [facility] Comment on above: The Pap smear is a s creening test designed to aid in thedetection of premalignant and malignant conditions of theuterine cervix. It is not a diagnostic procedure andshould not be used as the sole means of detecting cervicalcancer. Both false-positive and false-negative reports dooccur. Detection in cervical specim en of any of human papilloma virus (HPV) 16, 18, 31, 33,Ordered By: Stacey Marquis on 04-21-2025 HPV 16+18+31+33+35+39+45+51+5 2+56+58+59+66+68 DNA Probe+sig amp Ql (Cvx) Negative Negative [facility] Comment on above: This nucleic acid am plification test detects fourteen high-risk HPV types (16,18,31,33,35,39,45,51,52,56,58,59,66,68)without differentiation. Laboratory - CytologyOrdered By: Stacey Marquis on 04-21-2025 Wood Veneer Taper Cyto stain Nom (Cvx/Vag) [ID] Comment . [facility] Comment on above: Tip Escobar ytologist (ASCP) Laboratory - Miscellaneous t estsOrdered By: Stacey Marquis on 04-21-2025 Service comment (Unsp spec) [Interp] . . [facility] No Panel InformationOrdered By: Stacey Marquis on 04-21-2025 Pap Smear Specimen Adequacy Comment . [facility] Comment on above: Satisfactory for karen luation. No endocervical component is identified. Community [facility] Specialist Office Visit Reporton 04-21-2025 Community Health Specialist Office Visit Report [facility] [address], [address] [place] [address] OFFICE VISIT Date of Service: 04/21/25 MR#: [id number] Acct: [id number] Name: HILTON PALMER,NOY Rep #: [id number] : 1995 Provider: HIREN Uribe ams Age/Sex: 30/F [place] 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 Is patient in pain?: No Allergies cat dander Allergy (Mild, Verified 04/21/25 08:24) Other Medications ???Medication ???Instructions ???Recorded ???Confirmed ???Type adapalene 0.3 % topical gel 1 applic topical QPM #45 grams 03/0704/21/25 Rx clindamycin phosphate 1 % topical 1 applic topical QAM AND QHS #60 02/15/25 04/21/25 Rx gel grams methimazole 5 mg tablet 15 mg (3 x 5 mg) PO QDAY #90 tabs 03/09/25 04/21/25 Rx Is last menstrual period known: Yes Last Menstrual Period: 04/12/25 Post menopausal: No Patient : No : No Do you think of yourself as: straight/heterosexu al Current gender identity: female Control Method: none PFSH Medical History Thyrotoxicosis due to Graves' disease Acne Pre-conception counseling Bruit of left carotid artery Palpitations Acute appendicitis Abdominal pain Pelvic pain Dislocated jaw Vision problems High triglycerides Allergies Rib fracture Asthma Surgical History History of laparoscopic appendectomy No pertinent past surgical history S/P rhinoplasty Family History Mother Asthma Arrhythmia afib Brother Asthma Arrhythmia afib Grandmother Hypertension Grandmother Hypertension Father Hepatitis Social History adopted: No household members: spouse housing: house number of children: 0 current occupational status: employed current occupation: [employer] current occupational exposures/hazards: No pets and animals: No leisure activities: other history of recent travel: No sexually active: Yes Smoking Status: Never smoker Electronic Cigarette Use: not used second hand exposure: No alcohol intake: current alcohol intake frequency: a few times a month substance use type: does not use well-balanced diet: daily or most days caffeine: No eating out: 1-3 times/week during the past year weight has: remained stable frequency: 3-4 times per week seatbelt use: always do you feel safe at home: Yes additional social history: - Remington MOLLY Fertility Consult ([facility]) Details: NOY PALMER is a 30 year old who presents for infertility consult. She was about a year and a half ago and would like to start a family within the next couple years. She recently was dx with graves dx and sees Dr Jim for this. She is on Methimazole currently and is aware she will need to wait until the treatment is complete prior to TTC. She is having monthly cycles and reports having ovulation sx with her cycles. She does notice some discomfort with intercourse occasionally and has noticed a decrease in libido. Her last pap (nl) was 2 years ago in [place] and is unable to get records. Desires a repeat pap today. Denies other significant medical hx. Female Reproductive History Last Menstrual Period: 04/12/25 Cycle Length: 21-35 Bleeding Duration: 5 Questions: metorrhagia: No, sexually active: Yes, dyspareunia: Yes (occasionally ) and PCB: No Menopausal Symptoms: Yes mood changes, Yes difficulty concentrating and Yes change in libido ROS Const Constitutional: Reports system reviewed and no additional complaints, except as documented Cardio Card: Reports system reviewed and no additional complaints, except as documented Resp Resp: Reports system reviewed and no additional complaints, except as documented GI GI: Reports system reviewed and no additional complaints, except as documented : Reports system reviewed and no additional complaints, except as documented; Denies difficulty voiding, dysuria or urinary frequency Skin Skin/Breast: Reports system reviewed and no additional complaints, except as documented Neuro Neuro: Reports system reviewed and no additional complaints, except as documented Psych Psych: Reports change in libido and difficulty concentrating Exam Const General: cooperative, healthy appearing, comfortable and no acute distress Orientation: alert, awake and oriented x3 Neck Neck: normal visual inspection and full ROM Thyroid: thyroid normal Chest Breast inspection: normal inspection of the breast (more content not included)... Normal [facility] Free T3on 04-09-2025 Free T3 [Mass/Vol] 3.5 pg/mL Normal 2.18-3.[address] [facility] Comment on above: Performed By: #### L 500.2500, L100.0100 #### [facility] [address] [place], [place], [id number] Free [id number] By: Colin Jim on 04-09-2025 Free T3 [Mass/Vol] 3.5 pg/mL 2.18-3.[address] [facility] T4 Free Directon 04-09-2025 T4 FREE DIRECT 1.10 ng/dL Normal 0.76-1.46 [facility] Comment on above: Performed By: #### L 500.2500, L100.0100 #### [facility] [address], [address] T4 freeOrdered By: Colin Jim on 04-09-2025 Free T4 [Mass/Vol] 1.10 ng/dL 0.76-1.[address] [facility] TSH DL <= 0.005 mIU/L QnOrde red By: Colin Jim on 04-09-2025 TSH Qn 0.008 uIU/mL Low 0.300-4.200 [facility] Thyroid Stim Hormone (TSH)on 04-09-2025 TSH 0.008 uIU/mL Low 0.300-4.200 [facility] Comment on above: Performed By: #### L 500.2500, L100.0100 #### [facility] [address] [place], [place], [phone] (141) Free T3on 03-29-2025 Free T3 [Mass/Vol] 3.3 pg/mL Normal 2.18-3.[address] [facility] Comment on above: Performed By: #### L 501.9520, L501.67708, L506.0400 #### [facility] [address] [place] [place], [address] Free [id number] By: Colin Jim on 03-29-2025 Free T3 [Mass/Vol] 3.3 pg/mL 2.18-3.[address] [facility] T4 Free Directon 03-29-2025 T4 FREE DIRECT 1.00 ng/dL Normal 0.76-1.46 [facility] Comment on above: Performed By: #### L 501.9520, L501.89099, L506.0400 #### [facility] [address] [place], [place], [address] T4 freeOrdered By: Colin Jim on 03-29-2025 Free T4 [Mass/Vol] 1.00 ng/dL 0.76-1.[address] [facility] TSH DL <= 0.005 mIU/L QnOrde red By: Colin Jim on 03-29-2025 TSH Qn 0.006 uIU/mL Low 0.300-4.200 [facility] Thyroid Stim Hormone (TSH)on 03-29-2025 TSH 0.006 uIU/mL Low 0.300-4.200 [facility] Comment on above: Performed By: #### L 501.9520, L501.47927, L506.0400 #### [facility] [address] [place], [place], [address] Thyroid Peroxidase ABon 05-2 THYR PEROX AB 365 IU/mL High 0-34 [facility] Comment on above: Result Comment: Perf ormed at: - [facility] [address] [id number] Legislative Director: Donaldo Tena PhD, Phone: [phone] Performed By: #### L 500.2500, L100.0100 #### [facility] [address] [place], [place], [id number] Free T3on 03-09-2025 Free T3 [Mass/Vol] 5.6 pg/mL High 2.18-3.[address] [facility] Comment on above: Performed By: #### L 500.2500, L100.0100 #### [facility] [address] [place], [place], [id number] Free [id number] By: Colin Jim on 03-09-2025 Free T3 [Mass/Vol] 5.6 pg/mL High 2.18-3.[address] [facility] Serum or plasma thyroperoxid ase antibody assay (units/volume)Ordered By: Colin Jim on 03-09-2025 TPO Ab Qn 365 [IU]/mL High 0-34 [facility] Comment on above: Performed at: [facility] [address] [id number] Director: Donaldo Tena PhD, Phone: [phone] T4 Free Directon 03-09-2025 T4 FREE DIRECT 1.70 ng/dL High 0.76-1.46 [facility] Comment on above: Performed By: #### L 500.2500, L100.0100 #### [facility] [address] [place], [place], [address] T4 freeOrdered By: Colin Jim on 03-09-2025 Free T4 [Mass/Vol] 1.70 ng/dL High 0.76-1.[address] [facility] TSH DL <= 0.005 mIU/L QnOrde red By: Colin Jim on 03-09-2025 TSH Qn 0.006 uIU/mL Low 0.300-4.200 [facility] Thyroid Stim Hormone (TSH)on 03-09-2025 TSH 0.006 uIU/mL Low 0.300-4.200 [facility] Comment on above: Performed By: #### L 500.2500, L100.0100 #### [facility] [address] [place], [place], [address] Endocrinology Visit Reporton 02-22-2025 Endocrinology Visit Report [facility] [address] [place] [address] OFFICE VISIT Date of Service: 02/22/25 MR#: [id number] Acct: [id number] Name: NOY LAYTON Rep #: [id number] : 1995 Provider: Rhett Gongora Age/Sex: 29/F Location: [facility] [place] Status: Signed Intake Vital Signs 02/15/25 08:54 02/22/25 10:12 Height 5 ft 8 in 5 ft 8 in Weight: 141 lb 2 oz BMI 21.4 BP 118/67 Blood Pressure Location Lt brachial Position Sitting Pulse 70 Pulse Source Monitor Pulse Oximetry (%) 99 Oxygen Delivery Method room air Intake Visit Reasons: Hyperthyroid Chief Complaint: Thyroid Is patient in pain?: No Allergies cat dander Allergy (Mild, Verified 02/22/25 10:18) Other Medications ???Medication ???Instructions ???Recorded ???Confirmed ???Type adapalene 0.3 % topical gel 1 applic topical QPM #45 grams 03/0702/22/25 Rx clindamycin phosphate 1 % topical 1 applic topical QAM AND QHS #60 02/15/25 02/22/25 Rx gel grams methimazole 5 mg tablet 5 mg PO BID #60 tabs 02/22/2502/11 Rx PFSH Medical History (Updated 02/22/25 @ 14:[address] 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 Noy reports that she started feeling poorly about 3 months ago. Her symptoms include inability to work out, feeling exhausted, weakness and palpitations. TSH < 0.005 Free T4 3.6 She has a cousin with thyroid disease. She was started on methimazole 5 mg last week. She would like to get next year. ROS Const Constitutional: Positive for fatigue, decreased energy and weight change (lost a few pounds); No change in appetite Eyes Eyes: No change in vision ENT ENT: No dizziness/vertigo or difficulty swallowing Cardio Cardiology: Positive for dyspnea on exertion, fast heart rate and palpitations; No chest pain at rest, chest pain with exertion or shortness of breath Musc Musculoskeletal: Positive for muscle weakness; No abnormal gait, joint pain, numbness or tingling Neuro Neurology: No abnormal gait, memory loss, numbness or tingling Psych Psychiatric: Positive for anxiety, No change in appetite, Positive for difficulty concentrating, Positive for irritability, No memory loss and No Thoughts of harming yourself/Others Resp Respiratory: No cough, chest congestion or shortness of breath Gastro GI: No abdominal pain, constipation, diarrhea or difficulty swallowing Genitourinary-Femal e: No burning urination Skin Skin: No itchy eyes or wounds Endo Endocrine: Positive for fatigue and weight change (lost a few pounds) Aller/Imm Allergy/Immunologic : No itchy eyes Exam Const General: cooperative, healthy appearing, comfortable, no acute distress, well developed and not cushingoid Nutritional Appearance: well nourished Orientation: alert, awake and oriented x3 HENMT Head: normal to inspection Ears: hearing grossly normal bilaterally Nose: external nose normal Mouth: oral mucosae normal Eyes General: appearance normal, both eyes and all related structures Alignment and Position: alignment normal Periorbital: periorbital findings normal Eyelids: eyelids normal Conjunctivae: conjunctivae normal Neck Neck: normal visual inspection Neck mass: No Thyroid: diffusely enlarged Carotids: bruit (thyroid bruit bilaterally) Lymphatic: no lymphadenopathy noted Chest Chest palpation inspection: normal inspection of the chest Resp Effort Inspe (more content not included)... Normal [facility] Thyroidon 02-20-2025 Thyroid [facility] Imaging Services [address] [place] [address] Thyroid MR#: [id number] Acct: [id number] Name: NOY LAYTON Rep #: [id number] : 1995 F 29 From: Levi strong MD PCP: Dr. Alexus Martinez MD Status: REG CLI Study: Thyroid Date of Exam: 02/20/25 Exam# [id number] Ordering Dr: Alexus Martinez MD PROCEDURE: THYROID 02/20/2025 REASON FOR EXAM: ABNORMAL THYROID FUNCTION/HYPERTHYRO IDISM TECHNIQUE: High-frequency thyroid ultrasound, including grayscale and color-flow images. REFERENCE LINKS: TI-RADS Chart: [email or web address] TI-RADS Calculator Tool with Reference Images: [email or web address]/ tirads-[email or web address]/ COMPARISON: None FINDINGS: Right thyroid lobe size: 5.3 cm x 2 cm x 1.7 cm Left thyroid lobe size: 5.4 cm x 1.6 cm x 1.7 cm Isthmus: 0.5 cm Background parenchymal echotexture is heterogeneous Nodules: Multiple bilateral small predominantly cystic nodule seen throughout both lobes of the thyroid suggestive of multinodular changes. US/Thyroid IMPRESSION: Findings suggestive of enlarged thyroid with multiple nodular densities bilaterally. Correlation with nuclear medicine uptake and thyroid scan recommended. RECOMMENDATION: Based on most suspicious nodule. Nodule size = largest diameter Only evaluate nodule if =>5 mm. Growth > 20% in 2 dimensions = worsening. Follow up to 4 nodules. Recommend biopsy for no more than 2 nodules. Reading Location: [id number] CC: Dr. Alexus Martinez MD Director Operating Room: Signed Normal [facility] Absolute lymphocyte countOrd ered By: Alexus Martinez on 02-15-2025 Lymphocytes Auto (Unsp spec) [#/Vol] 2.00 10*3/uL 0.83-4.51 [facility] Absolute neutrophil countOrd ered By: Alexus Martinez on 02-15-2025 Neutrophils (Bld) [#/Vol] 3.9 10*3/uL 2.0-7.7 [facility] Anion gap in Serum or Plasma Ordered By: Alexus Martinez on 02-15-2025 Anion gap [Moles/Vol] 10 mmol/L 5-15 [facility] Automated lymphocyte count a s percentage of total leukocytesOrdered By: Alexus Martinez on 02-15-2025 Lymphocytes/100 WBC Auto (Unsp spec) 30.5 % -41 [facility] BUN/creatinine ratioOrdered By: Alexus Martinez on 02-15-2025 Urea nitrogen/Creatinine [Mass ratio] 20.1 mg/mg High 10-20 [facility] Basophil percentageOrdered B y: Alexus Martinez on 02-15-2025 Basophils/100 WBC (Bld) 0.5 % 0-1 [facility] Bilirubin, totalOrdered By: Alexus Martinez on 02-15-2025 Bilirubin [Mass/Vol] 0.60 mg/dL 0.00-1.30 [facility] CBC W/Diff, Automatedon Absolute Lymph 2.00 X10 3/uL Normal 0.83-4.51 [facility] Comment on above: Performed By: #### L 500.2500, L100.0100 #### [facility] [address] [place], [address] Absolute Neut 3.9 X10 3/uL Normal 2.0-7.7 [facility] Comment on above: Performed By: #### L 500.2500, L100.0100 #### [facility] [address] [place], [address] Basophils/100 WBC (Bld) 0.5 % Normal 0-1 [facility] Comment on above: Performed By: #### L 500.2500, L100.0100 #### [facility] [address] [place], [address] Eosinophils/100 WBC (Bld) 1.4 % Normal 0-5 [facility] Comment on above: Performed By: #### L 500.2500, L100.0100 #### [facility] [address] [place], [address] Erythrocyte distribution width (RBC) [Ratio] 10.9 % Low 11.6-14.6 [facility] Comment on above: Performed By: #### L 500.2500, L100.0100 #### [facility] [address] [place], [address] Hematocrit (Bld) [Volume fraction] 38.7 % Normal 37-47 [facility] Comment on above: Performed By: #### L 500.2500, L100.0100 #### [facility] [address] [place], [address] Hemoglobin (Bld) [Mass/Vol] 12.8 g/dL Normal 12.0-15.0 [facility] Comment on above: Performed By: #### L 500.2500, L100.0100 #### [facility] [address] [place], [address] IG% 0.200 Normal 0.0-0.9 [facility] Comment on above: Result Comment: IG% - Immature Granulocytes (promyelocytes, myelocytes and metamyelocytes) > 1% indicates that a LEFT SHIFT is Present. Performed By: #### L 500.2500, L100.0100 #### [facility] [address] [place], [address] Lymphocytes/100 WBC (Bld) 30.5 % Normal 19-41 [facility] Comment on above: Performed By: #### L 500.2500, L100.0100 #### [facility] [address] [place], [address] MCH (RBC) [Entitic mass] 29.4 pg Normal 27.0-32.0 [facility] Comment on above: Performed By: #### L 500.2500, L100.0100 #### [facility] [address] [place], [address] MCHC (RBC) [Mass/Vol] 33.1 g/dL Normal 32-36 [facility] Comment on above: Performed By: #### L 500.2500, L100.0100 #### [facility] [address] [place], [address] MCV (RBC) [Entitic vol] 88.8 fL Normal 81-99 [facility] Comment on above: Performed By: #### L 500.2500, L100.0100 #### [facility] [address] [place], [address] Monocytes/100 WBC (Bld) 8.7 % Normal 0-10 [facility] Comment on above: Performed By: #### L 500.2500, L100.0100 #### [facility] [address] [place], [address] Neutrophils/100 WBC (Bld) 58.7 % Normal 47-70 [facility] Comment on above: Performed By: #### L 500.2500, L100.0100 #### [facility] [address] [place], [address] Nucleated RBC (Bld) [#/Vol] 0 10*3/uL Normal 0-5 [facility] Comment on above: Performed By: #### L 500.2500, L100.0100 #### [facility] [address] [place], [address] Platelet mean volume (Bld) [Entitic vol] 11.5 fL Normal 6.2-12.0 [facility] Comment on above: Performed By: #### L 500.2500, L100.0100 #### [facility] [address] [place], [address] Platelets (Bld) [#/Vol] 288 10*3/uL Normal 150-450 [facility] Comment on above: Performed By: #### L 500.2500, L100.0100 #### [facility] [address] [place], [address] RBC (Bld) [#/Vol] 4.36 10*6/uL Normal 4.2-5.4 [facility] Comment on above: Performed By: #### L 500.2500, L100.0100 #### [facility] [address] [place], [address] RDW SD 35.5 fl Normal 35.1-43.9 [facility] Comment on above: Performed By: #### L 500.2500, L100.0100 #### [facility] [address] [place], [address] WBC (Bld) [#/Vol] 6.6 10*3/uL Normal 4.4-11.[address] [facility] Comment on above: Performed By: #### L 500.2500, L100.0100 #### [facility] [address] [place], [address] Carbon dioxide, total [Moles /volume] in Central venous bloodOrdered By: Alexus Martinez on 02-15-2025 CO2 [Moles/Vol] 22.6 mmol/L 21.0-32.0 [facility] Chloride assayOrdered By: Ethel Martinez on 02-15-2025 Chloride [Moles/Vol] 105 mmol/L 98-108 [facility] Comprehensive Metabolic Prof ilon 02-15-2025 Albumin [Mass/Vol] 4.2 g/dL Normal 3.5-5.[address] [facility] Comment on above: Performed By: #### L 500.2500, L100.0100 #### [facility] [address] [place], [address] Albumin/Globulin [Mass ratio] 1.5 {ratio} Normal 0.9-2.4 [facility] Comment on above: Performed By: #### L 500.2500, L100.0100 #### [facility] [address] [place], [address] ALK PHOS 73 U/L Normal 35-104 [facility] Comment on above: Performed By: #### L 500.2500, L100.0100 #### [facility] [address] [place], [address] ALT [Catalytic activity/Vol] 16 U/L Normal <=34 [facility] Comment on above: Performed By: #### L 500.2500, L100.0100 #### [facility] [address] [place], [address] AST [Catalytic activity/Vol] 13 U/L Normal <=31 [facility] Comment on above: Performed By: #### L 500.2500, L100.0100 #### [facility] [address] [place], [address] Bilirubin [Mass/Vol] 0.60 mg/dL Normal 0.00-1.30 [facility] Comment on above: Performed By: #### L 500.2500, L100.0100 #### [facility] [address] [place], [address] BUN/CRE 20.1 RATIO High 10-20 [facility] Comment on above: Performed By: #### L 500.2500, L100.0100 #### [facility] [address] [place], [address] Calcium [Mass/Vol] 10.2 mg/dL Normal 7.6-11.[address] [facility] Comment on above: Performed By: #### L 500.2500, L100.0100 #### [facility] [address] [place], [address] Chloride [Moles/Vol] 105 mmol/L Normal 98-108 [facility] Comment on above: Performed By: #### L 500.2500, L100.0100 #### [facility] [address] [place], [address] CO2 [Moles/Vol] 22.6 mmol/L Normal 21.0-32.0 [facility] Comment on above: Performed By: #### L 500.2500, L100.0100 #### [facility] [address] [place], [address] Creatinine [Mass/Vol] 0.56 mg/dL Low 0.70-1.20 [facility] Comment on above: Performed By: #### L 500.2500, L100.0100 #### [facility] [address] [place], [address] GAP 10 Normal 5-15 [facility] Comment on above: Performed By: #### L 500.2500, L100.0100 #### [facility] [address] [place], [address] GFR/1.73 sq M.predicted among non-blacks MDRD (S/P/Bld) [Vol rate/Area] 125 mL/min/{1.73_m2} Normal >60 [facility] Comment on above: Result Comment: mL/m in/1.73m2 CKD-EPI Creatinine Equation (2020) Performed By: #### L 500.2500, L100.0100 #### [facility] [address] [place], [address] Globulin (S) [Mass/Vol] 2.8 g/dL Normal 2.2-4.2 [facility] Comment on above: Performed By: #### L 500.2500, L100.0100 #### [facility] [address] [place], [address] Glucose [Mass/Vol] 93 mg/dL Normal 70-[address] [facility] Comment on above: Performed By: #### L 500.2500, L100.0100 #### [facility] [address] [place], [address] Potassium [Moles/Vol] 4.7 mmol/L Normal 3.3-5.1 [facility] Comment on above: Performed By: #### L 500.2500, L100.0100 #### [facility] [address] [place], [address] Sodium [Moles/Vol] 138 mmol/L Normal 133-[address] [facility] Comment on above: Performed By: #### L 500.2500, L100.0100 #### [facility] [address] [place], [address] T PROT 7.1 g/dL Normal 5.9-8.4 [facility] Comment on above: Performed By: #### L 500.2500, L100.0100 #### [facility] [address] [place], [address] Urea nitrogen [Mass/Vol] 11 mg/dL Normal 4-19 [facility] Comment on above: Performed By: #### L 500.2500, L100.0100 #### [facility] [address] [place], [address] Eosinophil percentageOrdered By: Alexus Martinez on 02-15-2025 Eosinophils/100 WBC (Bld) 1.4 % 0-5 [facility] Erythrocyte distribution wid th ratioOrdered By: Alexus Martinez on 02-15-2025 Erythrocyte distribution width (RBC) [Ratio] 10.9 % Low 11.6-14.6 [facility] Erythrocyte distribution wid th standard deviationOrdered By: Alexus Martinez on 02-15-2025 Erythrocyte distribution width (RBC) [Ratio] 35.5 fl 35.1-43.9 [facility] Glomerular filtration rate ( GFR) estimation/1.73 sq m using serum, plasma, or whole bOrdered By: Alexus Martinez on 02-15-2025 GFR/1.73 sq M.predicted among non-blacks MDRD (S/P/Bld) [Vol rate/Area] 125 mL/min/{1.73_m2} >60 [facility] Comment on above: mL/min/1.73m2 CKD-EP I Creatinine Equation (2020) Hematocrit Auto (Bld) [Volum e fraction]Ordered By: Alexus Martinez on 02-15-2025 Hematocrit (Bld) [Volume fraction] 38.7 % 37-47 [facility] Hemoglobin measurementOrdere d By: Alexus Martinez on 02-15-2025 Hemoglobin (Bld) [Mass/Vol] 12.8 g/dL 12.0-15.0 [facility] Immature granulocytes/100 WB C Auto (Bld)Ordered By: Alexus Martinez on 02-15-2025 Immature granulocytes/100 WBC (Bld) 0.200 % 0.0-0.9 [facility] Comment on above: IG% - Immature Granu locytes (promyelocytes, myelocytes and metamyelocytes) > 1% indicates that a LEFT SHIFT is Present. Internal Medicine Office Vis iton 02-15-2025 Internal Medicine Office Visit [facility] [address] [place] [address] [place] [address] OFFICE VISIT Date of Service: 02/15/25 MR#: [id number] Acct: [id number] Name: NOY LAYTON Rep #: [id number] : 1995 Provider: Dr. Alexus soto MD Age/Sex: 29/F Location[place] 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 Accompanied by: Self Is patient in pain?: No Allergies cat dander Allergy (Mild, Verified 02/15/25 08:51) Other Medications ???Medication ???Instructions ???Recorded ???Confirmed ???Type bismuth subsalicylate 262 mg/15 mL 524 mg PO Q1H PRN upset stomach 08/24/24 02/15/25 History oral suspension (Digestive Relief) adapalene 0.3 % topical gel 1 applic topical QPM #45 grams 03/0702/15/25 Rx clindamycin phosphate 1 % topical 1 applic topical QAM AND QHS #60 02/15/25 02/15/25 Rx gel grams Patient : No Have you fallen in the past year?: No Nurse's Note: tachycardia sometimes comes and go's [facility] Medical History (Updated 05/05/25 @ 09:[address] 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 Also has some concerns. She states that over the last month, she has had intermittent episodes of fast heartbeat. Typically at night. She also states that over the last month, she has felt more tired/winded with exercise. These are things that she had done previously and tolerated. During some sessions, she states that she feels like she is going to pass out but does not actually pass out. No recent dietary changes. No menstrual changes or significant bleed. No dark or bloody stool or unintentional weight changes. She also reports a history of acne, worsened after she went off her oral contraception. Got about 18 months ago and is looking to start a family in about a year. ROS Const Constitutional: No body ache, excessive sweating, fatigue, fever(s), frequent falls, headache(s), snoring, weakness, weight change, sleep problems or change in appetite Eyes Eyes: No blurry vision, change in vision, bulging eyes, floaters, visual disturbances, eye pain or Light sensitivity ENT ENT: No abnormal hearing, ear or mastoid pain, tinnitus, balance problems, nosebleed/epistaxis , nasal congestion, headache(s), neck pain or sore throat Resp Respiratory: No cough, excessive phlegm production, pain on inspiration, shortness of breath, snoring or wheezing Cardio Cardiology: Positive for palpitations; No chest pain at rest, chest pain with exertion, excessive sweating, shortness of breath, dyspnea on exertion, lightheadedness or orthopnea Gastro GI: No abdominal pain, change in bowel habits, constipation, cramping, diarrhea, nausea/dyspepsia or vomiting Genitourinary-Femal e: No burning urination, painful urination, urinary incontinence, urinary frequency, blood in urine, suprapubic fullness, side pain, abnormal periods or pelvic pain Musc Musculoskeletal: No abnormal gait, joint pain, back pain, limited range of motion, loss of height, muscle cramps, neck pain, numbness, stiffness, tingling or Arthritis Skin Skin: No dry skin, redness, lesions, itchy eyes, rash or wounds Neur (more content not included)... Normal [facility] - Chemistry and C hemistry - challengeOrdered By: Alexus Martinez on 02-15-2025 AST [Catalytic activity/Vol] 13 U/L <32 [facility] MCV (mean corpuscular volume ) determinationOrdered By: Alexus Martinez on 02-15-2025 MCV (RBC) [Entitic vol] 88.8 fL 81-99 [facility] Mean corpuscular hemoglobin (MCH) determinationOrdered By: Alexus Martinez on 02-15-2025 MCH (RBC) [Entitic mass] 29.4 pg 27.0-32.0 [facility] Mean corpuscular hemoglobin concentration (MCHC) determinationOrdered By: Alexus Martinez on 02-15-2025 MCHC (RBC) [Mass/Vol] 33.1 g/dL 32-36 [facility] Mean platelet volume determi nationOrdered By: Alexus Martinez on 02-15-2025 Platelet mean volume (Bld) [Entitic vol] 11.5 fL 6.2-12.0 [facility] Monocyte percentageOrdered B y: Alexus Martinez on 02-15-2025 Monocytes/100 WBC (Bld) 8.7 % 0-10 [facility] Neutrophil percentageOrdered By: Alexus Martinez on 02-15-2025 Neutrophils/100 WBC (Bld) 58.7 % 47-70 [facility] Nucleated red blood cell per centageOrdered By: Alexus Martinez on 02-15-2025 Nucleated RBC/100 WBC (Bld) [Ratio] 0 % 0-5 [facility] Platelet countOrdered By: Ethel Martinez on 02-15-2025 Platelets (Bld) [#/Vol] 288 10*3/uL 150-450 [facility] Potassium measurement (mass/ volume)Ordered By: Alexus Martinez on 02-15-2025 Potassium (Unsp spec) [Mass/Vol] 4.7 mmol/L 3.3-5.1 [facility] RBC Auto (Bld) [#/Vol]Ordere d By: Alexus Martinez on 02-15-2025 RBC (Bld) [#/Vol] 4.36 10*6/uL 4.2-5.4 [facility] Serum creatinine measurement (mass/volume)Ordered By: Alexus Martinez on 02-15-2025 Creatinine [Mass/Vol] 0.56 mg/dL Low 0.70-1.20 [facility] Serum globulin measurementOr dered By: Alexus Martinez on 02-15-2025 Globulin (S) [Mass/Vol] 2.8 g/dL 2.2-4.2 [facility] Serum glucose measurement (m ass/volume)Ordered By: Alexus Martinez on 02-15-2025 Glucose [Mass/Vol] 93 mg/dL 70-[address] [facility] Serum or plasma alanine morrell otransferase (ALT) measurementOrdered By: Alexus Martinez 02-15-2025 ALT [Catalytic activity/Vol] 16 U/L <35 [facility] Serum or plasma albumin goldy urement (mass/volume)Ordered By: Alexus Martinez 02-15-2025 Albumin [Mass/Vol] 4.2 g/dL 3.5-5.[address] [facility] Serum or plasma albumin/glob ulin mass ratioOrdered By: [facility] Lakes[facility] on 02-15-2025 Albumin/Globulin [Mass ratio] 1.5 {ratio} 0.9-2.4 [facility] Serum or plasma alkaline naveen sphatase measurementOrdered By: guevara Betheasreedevin on 02-15-2025 ALP [Catalytic activity/Vol] 73 U/L 35-104 [facility] Serum or plasma calcium goldy urement (mass/volume)Ordered By: guevara Betheasreedevin on 02-15-2025 Calcium [Mass/Vol] 10.2 mg/dL 7.6-11.[address] [facility] Serum or plasma urea nitroge n measurement (mass/volume)Ordered By: guevara Martinez on 02-15-2025 Urea nitrogen [Mass/Vol] 11 mg/dL 4-19 [facility] Sodium levelOrdered By: gilmar borgeserin Lakesreedevin on 02-15-2025 Sodium [Moles/Vol] 138 mmol/L 133-[address] [facility] T4 Free Directon 02-15-2025 T4 FREE DIRECT 3.60 ng/dL High 0.76-1.46 [facility] Comment on above: Performed By: #### L 500.2500, L100.0100 #### [facility] [address] [facility] [id number] T4 freeOrdered By: Alexus Martinez on 02-15-2025 Free T4 [Mass/Vol] 3.60 ng/dL High 0.76-1.[address] [facility] TSH DL <= 0.005 mIU/L QnOrde red By: Alexus Martinez on 02-15-2025 TSH Qn < 0.005 uIU/mL Low 0.300-4.200 [facility] Thyroid Stim Hormone (TSH)on 02-15-2025 TSH Qn m[IU]/L Low 0.300-4.200 [facility] Comment on above: Performed By: #### L 500.2500, L100.0100 #### [facility] [address] [place], [address] Total proteinOrdered By: Arvind Martinez on 02-15-2025 Protein [Mass/Vol] 7.1 g/dL 5.9-8.[address] [facility] White blood cell (WBC) count Ordered By: Alexus Martinez on 02-15-2025 WBC (Bld) [#/Vol] 6.6 10*3/uL 4.4-11.[address] [facility] Surgery Visit Reporton 09-04 Surgery Visit Report [facility] [address] [place] [address] OFFICE VISIT Date of Service: 09/04/24 MR#: [id number] Acct: [id number] Name: NOY LAYTON Rep #: [id number] : 1995 Provider: Dr. 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 Is patient in pain?: No Allergies cat dander Allergy (Mild, Verified 09/04/24 08:43) Other Medications ???Medication ???Instructions ???Recorded ???Confirmed ???Type Mileva PO DAILY 12/11/23 09/04/24 History drospirenone 3 mg-ethinyl 1 tab PO DAILY #28 tabs 01/14/24 09/04/24 Rx estradiol 0.03 mg tablet bismuth subsalicylate 262 mg/15 mL 524 mg PO Q1H PRN upset stomach 08/24/24 09/04/24 History oral suspension (Digestive Relief) drospirenone 3 mg-ethinyl 1 tab PO DAILY 08/24/24 09/04/24 History estradiol 0.03 mg tablet oxycodone 5 mg tablet 5 - 10 mg (1 - 2 x 5 mg) PO Q4H 08/24/24 09/04/24 Rx PRN PRN Pain Score 4-10 5 days #20 tabs Have you fallen in the past year?: No Subjective Details: Patient is doing well with no complaints Objective Details: Abdomen is soft and nontender incisions are healing well Coding Level of Care Code Global Post Op Diagnoses Acute appendicitis, unspecified acute appendicitis type K35.80 Acute appendicitis type: unspecified acute appendicitis type [facility] Medical History Acute appendicitis Abdominal pain Pelvic pain Dislocated jaw Vision problems High triglycerides Allergies Rib fracture Asthma Surgical History History of laparoscopic appendectomy No pertinent past surgical history S/P rhinoplasty Family History Mother Asthma Arrhythmia afib Brother Asthma Arrhythmia afib Grandmother Hypertension Grandmother Hypertension Father Hepatitis Social History adopted: No household members: spouse current occupational status: employed 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 Follow-up as needed. Activity and diet as tolerated. Jorge Luis Colón MD Pager: [facility] [address] [place] [address] Office: 09/04/2420 Date Jorge Luis Colón MD [facility] Signature[facility] Date (if applicable) CC: Normal [facility] MR/[id number] 08-25-2024 MR/POSTOPAN2 [facility] Medical Records Department [address] [place] [address] Anesthesia Postop Eval II 08/25/24635 MR#: [id number] Acct: [id number] Name: NOY LAYTON Rep #: [id number] : 1995 29 From: Jordan Quezada MD PCP: Dr. Ketty Pickett MD Status:DEP [facility] Y Race: H Location: [facility] Anesthesia Postop Eval I Sum Postop Eval Completion status Anesthesia document: Postop Eval 1 completed: Yes Anesthesia Postop Eval I Summary Anesthesia Postop Eval I Summary: Anesthesia Postop Eval I: Assessment Summary Airway patent Yes 08/24/24 15:52 TAPE [email or web address].CSIR Spontaneous unlabored Yes 08/24/24 15:52 TAPE STRINGER.CSIR respirations Mental status nausea No 08/24/24 15:52 TAPE STRINGER.CSIR Vomiting No 08/24/24 15:52 TAPE STRINGER.CSIR Anesthesia Postop Eval I: Fluid Summary Crystalloid volume administer 1,000 08/24/24 15:52 TAPE STRINGER.CSIR (ml) Colloids volume administered ( ml) Blood Product volume administered (ml) Total IV fluid infused 1,000 08/24/24 15:52 TAPE STRINGER.CSIR Anesthesia Postop Eval I: Summary Notes Anesthesia Complication No 08/24/24 15:52 TAPE STRINGER.CSIR Anesthesia Complication Comment: Post-operative progress note Anesthesia: Postop Eval II Evaluation Mental status: Awake Pain Level: 0 nausea: No Vomiting: No 08/25/24635 Date Jordan Quezada MD Cosigner Signature: Date CC: Signed [facility] 12 Lead EKGon 08-24-2024 12 Lead EKG [facility] Cardiovascular Services [address] [place] [address] 12 Lead EKG 08/24/24 1109 MR#: [id number] Acct: [id number] Name: NOY LAYTON Rep #: [id number] : 1995 29 From: Kimani Schultz MD Attending Dr: Dr. Jorge Luis Colón MD Status: DEP SD Ordering Dr: Reji Farrar DO Date: 08/24/24 Location: [facility] Sex: F H Admitted: Test Reason : P Blood Pressure : */* mmHG Vent. Rate : 50 BPM Atrial Rate : 50 BPM P-R Int : 158 ms QRS Dur : 86 ms QT Int : 452 ms P-R-T Axes : 64 73 60 degrees QTcB Int : 412 ms Sinus bradycardia with sinus arrhythmia Otherwise normal ECG Confirmed by ANCELMO GRAF, KIMANI ([id number]), manuscript editor BLAKE AVILA ([id number]) on 08/25/2024 6:39:44 AM Referred By: Confirmed By: KIMANI SCHULTZ MD 08/25/24 0639 Date Kimani Schultz MD CC: Dr. Ketty Pickett MD; Dr. Jorge Luis Colón MD; Dr. Reji Farrar DO Signed Normal [facility] Abdomen/Pelvis W IV Cont ONL Yon 08-24-2024 Abdomen/Pelvis W IV Cont ONLY [facility] Imaging Services [address] [place] [address] Abdomen/Pelvis W IV Cont ONLY MR#: [id number] Acct: [id number] Name: NOY LAYTON Rep #: [id number] : 1995 F 29 From: Levi strong MD PCP: Dr. Ketty Pickett MD Status: DEP [facility] Study: Abdomen/Pelvis W IV Cont ONLY Date of Exam: Exam# [id number] Ordering Dr: Reji Farrar DO -[id number] STUDY: CT ABDOMEN AND PELVIS WITH CONTRAST REASON FOR EXAM: Female, 29 years old. RLQ/pelvic pain RADIATION DOSAGE (If Supplied By Facility): CTDIvol = ( 12.11 ) mGy, DLP = ( 394.90 ) mGycm TECHNIQUE: Transaxial images were obtained from the dome of the diaphragm to the symphysis pubis without oral contrast. IV 75mL Isovue-300 was administered. Sagittal and coronal images were reconstructed. Individualized dose optimization techniques were used for this CT. COMPARISON: Comparison is made with prior sonogram done earlier in the day. FINDINGS: The visualized lung bases are unremarkable. The visualized portions of the heart are within normal limits. Normal liver. Normal gallbladder and extrahepatic biliary system. Normal spleen. Normal pancreas. Normal bilateral adrenal glands. Normal right kidney. Normal left kidney. Normal visualized stomach. Normal small intestine. Normal colon. There is a mild degree of a single Czech wall thickening of the appendix. It is slightly dilated measuring 8.5 mm. Early appendicitis should be ruled out. Small amount of free fluid is seen in the right side of the cul-de-sac. Normal abdominal aorta. Normal inferior vena cava. Normal retroperitoneum. Normal urinary bladder. Follicles are seen in the right ovary. There is a small umbilical hernia containing fat. Normal osseous structures. CT/Abdomen/Pelvis W IV Cont ONLY IMPRESSION: Mild thickening and mildly dilated appendix as described. Small amount of free fluid is seen in the cul-de-sac. Clinical correlation and correlation with lab results recommended to rule out early appendicitis. Electronically Signed: Levi Campos MD at 10:39 EST , CC: Dr. Ketty Pickett MD; Dr. Reji Farrar DO Director Operating Room: Signed Normal [facility] Basic Metabolic Profile (BMP )on 08-24-2024 BUN/CRE 7.5 RATIO Low 10-20 [facility] Comment on above: Performed By: #### L 500.2500, L100.0100 #### [facility] [address] [place], [address] CA,Total 9.4 mg/dL Normal 8.5-10.1 [facility] Comment on above: Performed By: #### L 500.2500, L100.0100 #### [facility] [address] [place], [address] Chloride [Moles/Vol] 107 mmol/L Normal 98-107 [facility] Comment on above: Performed By: #### L 500.2500, L100.0100 #### [facility] [address] [place], [address] CO2 [Moles/Vol] 24.0 mmol/L Normal 21.0-32.0 [facility] Comment on above: Performed By: #### L 500.2500, L100.0100 #### [facility] [address] [place], [address] Creatinine [Mass/Vol] 0.80 mg/dL Normal 0.55-1.02 [facility] Comment on above: Result Comment: The validity of the calculated GFR GFRAA in patients over 70 years has not been determined. Clinical correlation is essential. Performed By: #### L 500.2500, L100.0100 #### [facility] [address] [place], [address] ECRCL 102.78 ml/min Normal [facility] Comment on above: Performed By: #### L 500.2500, L100.0100 #### [facility] [address] [place], [address] EST GFR - AA 107 mL/min Normal >60 [facility] Comment on above: Result Comment: Afri can Qatari GFR Calc Performed By: #### L 500.2500, L100.0100 #### [facility] [address] [place], [address] GAP 7 Normal 5-15 [facility] Comment on above: Performed By: #### L 500.2500, L100.0100 #### [facility] [address] [place], [address] GFR/1.73 sq M.predicted among non-blacks MDRD (S/P/Bld) [Vol rate/Area] 88 mL/min/{1.73_m2} Normal >60 [facility] Comment on above: Result Comment: Non- GFR Calc Performed By: #### L 500.2500, L100.0100 #### [facility] [address] [place], [address] Glucose [Mass/Vol] 88 mg/dL Normal 74-[address] [facility] Comment on above: Performed By: #### L 500.2500, L100.0100 #### [facility] [address] [place], [address] Potassium [Moles/Vol] 3.7 mmol/L Normal 3.5-5.1 [facility] Comment on above: Performed By: #### L 500.2500, L100.0100 #### [facility] [address] [place], [address] Sodium [Moles/Vol] 138 mmol/L Normal 136-[address] [facility] Comment on above: Performed By: #### L 500.2500, L100.0100 #### [facility] [address] [place], [address] Urea nitrogen [Mass/Vol] 6 mg/dL Low 7-18 [facility] Comment on above: Performed By: #### L 500.2500, L100.0100 #### [facility] [address] [place], [address] CBC W/Diff, Automatedon 11 Absolute Lymph 2.31 X10 3/uL Normal 0.83-4.51 [facility] Comment on above: Performed By: #### L 500.2500, L100.0100 #### [facility] [address] [place], [address] Absolute Neut 13.3 X10 3/uL High 2.0-7.7 [facility] Comment on above: Performed By: #### L 500.2500, L100.0100 #### [facility] [address] [place], [address] Basophils/100 WBC (Bld) 0.4 % Normal 0-1 [facility] Comment on above: Performed By: #### L 500.2500, L100.0100 #### [facility] [address] [place], [address] Eosinophils/100 WBC (Bld) 1.4 % Normal 0-5 [facility] Comment on above: Performed By: #### L 500.2500, L100.0100 #### [facility] [address] [place], [address] Erythrocyte distribution width (RBC) [Ratio] 12.1 % Normal 11.6-14.6 [facility] Comment on above: Performed By: #### L 500.2500, L100.0100 #### [facility] [address] [place], [address] Hematocrit (Bld) [Volume fraction] 40.1 % Normal 37-47 [facility] Comment on above: Performed By: #### L 500.2500, L100.0100 #### [facility] [address] [place], [address] Hemoglobin (Bld) [Mass/Vol] 13.4 g/dL Normal 12.0-15.0 [facility] Comment on above: Performed By: #### L 500.2500, L100.0100 #### [facility] [address] [place], [address] IG% 0.400 Normal 0.0-0.9 [facility] Comment on above: Result Comment: IG% - Immature Granulocytes (promyelocytes, myelocytes and metamyelocytes) > 1% indicates that a LEFT SHIFT is Present. Performed By: #### L 500.2500, L100.0100 #### [facility] [address] [place], [address] Lymphocytes/100 WBC (Bld) 13.8 % Low 19-41 [facility] Comment on above: Performed By: #### L 500.2500, L100.0100 #### [facility] [address] [place], [address] MCH (RBC) [Entitic mass] 30.2 pg Normal 27.0-32.0 [facility] Comment on above: Performed By: #### L 500.2500, L100.0100 #### [facility] [address] [place], [address] MCHC (RBC) [Mass/Vol] 33.4 g/dL Normal 32-36 [facility] Comment on above: Performed By: #### L 500.2500, L100.0100 #### [facility] [address] [place], [address] MCV (RBC) [Entitic vol] 90.5 fL Normal 81-99 [facility] Comment on above: Performed By: #### L 500.2500, L100.0100 #### [facility] [address] [place], [address] Monocytes/100 WBC (Bld) 4.9 % Normal 0-10 [facility] Comment on above: Performed By: #### L 500.2500, L100.0100 #### [facility] [address] [place], [address] Neutrophils/100 WBC (Bld) 79.1 % High 47-70 [facility] Comment on above: Performed By: #### L 500.2500, L100.0100 #### [facility] [address] [place], [address] Nucleated RBC (Bld) [#/Vol] 0 10*3/uL Normal 0-5 [facility] Comment on above: Performed By: #### L 500.2500, L100.0100 #### [facility] [address] [place], [address] Platelet mean volume (Bld) [Entitic vol] 10.7 fL Normal 6.2-12.0 [facility] Comment on above: Performed By: #### L 500.2500, L100.0100 #### [facility] [address] [place], [address] Platelets (Bld) [#/Vol] 311 10*3/uL Normal 150-450 [facility] Comment on above: Performed By: #### L 500.2500, L100.0100 #### [facility] [address] [place], [address] RBC (Bld) [#/Vol] 4.43 10*6/uL Normal 4.2-5.4 [facility] Comment on above: Performed By: #### L 500.2500, L100.0100 #### [facility] [address] [place], [address] RDW SD 39.8 fl Normal 35.1-43.9 [facility] Comment on above: Performed By: #### L 500.2500, L100.0100 #### [facility] [address] [place], [address] WBC (Bld) [#/Vol] 16.8 10*3/uL High 4.4-11.0 [facility] Comment on above: Performed By: #### L 500.2500, L100.0100 #### [facility] [address] [place], [address] Chest 1 View (Portable)on Chest 1 View (Portable) [facility] Imaging Services [address] [place], [place] [id number] Chest 1 View (Portable) MR#: [id number] Acct: [id number] Name: NOY LAYTON Rep #: [id number] : 1995 F 29 From: Levi strong MD PCP: Dr. Ketty Pickett MD Status: [facility] Study: Chest 1 View (Portable) Date of Exam: 08/24/24 Exam# [id number] Ordering Dr: Reji Farrar DO [id number] STUDY: X-RAY CHEST REASON FOR EXAM: Female, 29 years old. Preop TECHNIQUE: Single AP portable view of the chest. COMPARISON: None. FINDINGS: The lungs are clear and expanded. There is no demonstrated pleural abnormality. Normal size heart. Normal mediastinum and sayda. Normal visualized pulmonary arteries. Normal visualized aortic arch and descending thoracic aorta. Normal visualized thoracic spine. Normal visualized ribs, clavicles, and shoulders. There is no demonstrated abnormality of the visualized soft tissue structures of the upper abdomen. RAD/Chest 1 View (Portable) IMPRESSION: Normal x-ray examination of the chest. Electronically Signed: Levi Campos MD at 11:30 EST , CC: Dr. Ketty Pickett MD; Dr. Reji Farrar DO Director Operating Room: Signed Normal [facility] Discharge Instructionon 08-14 Discharge Instruction [facility] Medical Records Department [address] [place] [address] Instructions for Home/Discharge Instructions 08/24/24 1548 MR#: [id number] Acct: [id number] Name: NOY LAYTON Rep #: [id number] : 1995 29 From: Jorge Luis Colón MD PCP: Dr. Ketty Pickett MD Status:DEP [facility] Discharge Instructions Procedure Appendectomy Diet Discharge Diet: Light diet - advance as tolerated Activity Discharge Activity: May Not Drive (for 2-3 days or while taking narcotic pain medications.) May shower in (days): 1 Lifting Restrictions: 20 lbs for 2 weeks Dressing / Incision Call your doctor if your incision/area has: Continuous Slow Oozing, Sudden Increased Bleeding, Increased Pain/ Swelling, Increased Redness and Foul Smelling Discharge Call your doctor if you observe: Fever of 101 or Higher Suture Line Care: Avoid Pulling/Pushing and Avoid Pinching/Bending Remove Dressing in: 2 days Cleanse incision/area with: Soap Water Additional Dressing/Incision Instructions:: Keep dressing clean and dry. Change or remove dressing in 2 days. Leave steri strips for 1 week. May protect with a gauze bandaid. Follow Up Care Please Follow Up With: Jorge Luis Colón MD When: Please call to schedule 2 week follow up appointment. [phone] Test Results: Test results from this visit will be discussed in further detail at your follow-up appointment, if applicable. Discharge Plan Admission Attending Provider: Jorge Luis Colón Primary Care Provider: Ketty Pickett Instructions Print Language: Stateless Discharge Orders/Prescription s Prescriptions: New oxycodone 5 mg Tablet 5 - 10 mg PO Q4H PRN PRN (Reason: Pain Score 4-10) 5 Days Qty: 20 0RF No Action drospirenone-ethiny l estradiol 3-0.03 mg tablet 1 tab PO DAILY bismuth subsalicylate [Digestive Relief] 262 mg/15 mL suspension 524 mg PO Q1H PRN (Reason: upset stomach) Rx Instructions: do not exceed 8 doses in a 24 hour period Referrals / Follow Up: NOT,DEFINED [Non-Staff] - Disposition Disposition (needs filled in before D/C Order can be placed): Home, Self Care 08/24/24 4838 Jorge Luis Colón MD CC: Dr. Ketty Pickett MD Signed [facility] Emergency Department Summary on 08-24-2024 Emergency Department Summary [facility] Medical Records Department [address] [place] [address] Emergency Department Summary 08/24/24 MR#: [id number] Acct: [id number] Name: NOY LAYTON Rep #: [id number] : 1995 29 From: Reji Barnes PCP: Dr. Ketty Pickett MD Status:[facility] Location: [facility] HPI HPI - GI History of Present Illness Chief Complaint: Abd Pain Informant: patient and spouse/S.O. Narrative Narrative: Presents with a similar worsening suprapubic pain and pain to the right awaken her at 2 in the morning. Day 3 of her menstrual period typically last 5 days. No similar pains in the past. No history of ovarian issues. No fever chills or sweats. Denies any abdominal surgeries. Denies past medical history. Denies urinary symptoms. Denies history of kidney stones. Prior similar symptoms: No PFSH PFSH Home Medications ???Medication ???Instructions ???Recorded ???Last Taken ???Type bismuth subsalicylate 262 mg/15 mL 524 mg PO Q1H PRN upset stomach 08/24/24 08/24/24 History oral suspension (Digestive Relief) drospirenone 3 mg-ethinyl 1 tab PO DAILY 08/24/24 08/24/24 History estradiol 0.03 mg tablet Allergy/AdvReac Type Severity Reaction Status Date / Time No Known Allergies Allergy Verified 08/24/24 08:22 Surgical History (Updated 08/24/24 @ 14:[address] Adrian Goodman MD) S/P rhinoplasty Social History Smoking Status: Never smoker ROS ROS ED Constitutional Constitutional ED: Denies chills, fever(s) or sweats Eyes Eyes: Denies change in vision ENT ENT ED: Denies dysphagia or sore throat Cardiovascular Cardiovascular: Denies chest pain, leg edema, palpitations or racing heartbeat Respiratory/Chest Respiratory/Chest: Denies cough, dyspnea or dyspnea on exertion Gastrointestinal Gastrointestinal: Reports abdominal pain; Denies diarrhea, nausea or vomiting Genitourinary Genitourinary ED: Denies dysuria, hematuria or urinary frequency Musculoskeletal Musculoskeletal: Denies back pain, extremity pain or neck pain Integumentary Denies rash or wounds Neurologic Neurologic: Denies headache(s), paresthesias or weakness EXAM Physical Exam Const Vital Signs: 08/24/24 08:22 08/24/24 10:35 08/24/24 12:10 Temperature 98.0 F 98.2 F Temperature Source Oral Oral Pulse Rate 70 74 71 Respiratory Rate 16 15 15 Blood Pressure 121/82 H 131/69 H 134/67 H Blood Pressure Mean 95 89 89 Pulse Ox 100 96 97 Oxygen Delivery Method Room Air Room Air Room Air 08/24/24 12:44 08/24/24 14:09 Temperature 98.1 F 98.1 F Temperature Source Pulse Rate 73 73 Respiratory Rate 15 15 Blood Pressure 126/79 H 126/79 H Blood Pressure Mean 94 Pulse Ox 99 99 Oxygen Delivery Method Room Air Positive well nourished and well developed Constitutional Narrative: Uncomfortable, nontoxic General Appearance ED: well developed HEENT Reports moist mucous membranes normocephalic and atraumatic Eyes EOMs intact bilaterally and conjunctivae normal General Eye ED: Yes normal appearance of both eyes Neck no lymphadenopathy and supple General: Negative for tenderness Chest Wall Chest: Negative for tenderness Resp normal respiratory effort and normal air movement Effort and Inspection: symmetric chest movement; Negative for respiratory distress Cardio regular rate, regular rhythm and no murmurs Peripheral Pulses: pulses 2+ throughout GI normal to inspection, nondistended, normoactive bowel sounds GI Narrative: Negative Campos's or McBurney's region tenderness. Palpation: Negative for guarding or rebound tenderness present Narrative: Tender suprapubic right pelvis on exam. Back/Spine no CVA tenderness and no thoracic nor lumbar tenderness Extremity normal to inspection General Extremety ED: Negative for edema or tenderness General Extremity: Negative for edema Neuro oriented x3 and no sensory deficits noted Sensorium / Orientation: awake and alert Skin no rashes or lesions noted and no wounds MDM MDM MDM Narrative Medical decision making narrative: Interventions / MDM: Differential diagnosis: Acute appendicitis, abdominal pain Diagnosis considered but do not suspect: Ovarian torsion however ultrasound negative. Kidney stone however CT negative My EKG interpretation: Sinus rate of 50, no ST changes. T wave version V1 V2. QTc 412. Imaging independently reviewed and interpreted by myself: Transvaginal ultrasound: Per radiologist mild adnexal free fluid no torsion. 1 view chest x-ray: No acute process. CT abdomen pelvis IV contrast: thickened and dilated appendix, mild pelvic free fluid. External documents reviewed: N/A Test considered but not ordered:N/A ED course: Patient pain suprapubic pel (more content not included)... [facility] H AND P Exam - Surgicalon H&P Exam - Surgical [facility] Medical Records Department [address] [place] [address] H P Exam - Surgical 08/24/24 1228 MR#: [id number] Acct: [id number] Name: NOY LAYTON Rep #: [id number] : 1995 29 From: Jorge Luis Colón MD PCP: Dr. Ketty Pickett MD Status:DEP [facility] Location: [facility] HPI - General HPI Narrative NOY PALMER, is a 29 F who presents with lower abdominal pain. The pain woke her up from sleep. She describes the pain as sharp in the right lower quadrant. She denies vomiting but she did get nauseated. She denies fevers or chills. PFSH Home Medications ???Medication ???Instructions ???Recorded ???Last Taken ???Type bismuth subsalicylate 262 mg/15 mL 524 mg PO Q1H PRN upset stomach 08/24/24 08/24/24 History oral suspension (Digestive Relief) drospirenone 3 mg-ethinyl 1 tab PO DAILY 08/24/24 08/24/24 History estradiol 0.03 mg tablet Allergy/AdvReac Type Severity Reaction Status Date / Time No Known Allergies Allergy Verified 08/24/24 08:22 Social History Smoking Status: Never smoker ROS Constitutional Constitutional: Denies anorexia, chills, fatigue or fever(s) ENT HEENT: Denies abnormal hearing Cardiovascular Cardiovascular: Denies chest pain Respiratory/Chest Respiratory/Chest: Denies cough or dyspnea Gastrointestinal Gastrointestinal: Reports abdominal pain and nausea; Denies constipation, diarrhea, dysphagia or vomiting Genitourinary Genitourinary: Denies change in urinary stream Musculoskeletal Musculoskeletal: Denies abnormal gait Integumentary Integumentary: Denies jaundice or new lesions Neurologic Neurologic: Denies abnormal gait or dizziness Psychiatric Psychiatric: Denies anxiety Hematologic/Lymphat ic Hematologic/Lymphat ic: Denies easy bleeding Vital Signs Vital Signs Vital Signs: 08/24/24 08:22 08/24/24 10:35 08/24/24 12:10 Temperature 98.0 F 98.2 F Temperature Source Oral Oral Pulse Rate 70 74 71 Respiratory Rate 16 15 15 Blood Pressure 121/82 H 131/69 H 134/67 H Blood Pressure Mean 95 89 89 Pulse Ox 100 96 97 Oxygen Delivery Method Room Air Room Air Room Air Weight Weight: 141 lb 1.533 oz Body Mass Index (BMI) 21.1 Physical Exam Const oriented x3 and no apparent distress Resp normal respiratory effort Cardio regular rate and regular rhythm GI soft to palpation Palpation: tender RLQ Extremity normal to inspection Results Lab / Micro Data 08/24/24 08:35 08/24/24 08:35 Labs: Laboratory Results - last 24 hr 08/24/24 08:35: WBC 16.8 H, RBC 4.43, Hgb 13.4, Hct 40.1, MCV 90.5, MCH 30.2, MCHC 33.4, RDW Std Deviation 39.8, RDW Coeff of Prudencio 12.1, Plt Count 311, MPV 10.7, Immature Gran % (Auto) 0.400, Neut % (Auto) 79.1 H, Lymph % (Auto) 13.8 L, Lyman % (Auto) 4.9, Eos % (Auto) 1.4, Baso % (Auto) 0.4, A bsolute Neuts (auto) 13.3 H, Absolute Lymphs (auto) 2.31, Nucleated RBC % 0, Sodium 138, Potassium 3.7, Chloride 107, Carbon Dioxide 24.0, Anion Gap 7, BUN 6 L, Creatinine 0.80, Estim Creat Clear Calc 102.78, Est GFR (MDRD) Af Amer 107, Est GFR (MDRD) Non-Af 88, BUN/Creatinine Ratio 7.5 L, Glucose 88, Calcium 9.4, Serum , Qual NEGATIVE 08/24/24 08:49: Urine Color Yellow, Urine Clarity Clear, Urine pH 7.0, Ur Specific [place] 1.005, Urine Protein Negative, Urine Glucose (UA) Normal, Urine Ketones Negative, Urine Occult Blood 10 H, Urine Nitrite Negative, Urine Bilirubin Negative, Urine Urobilinogen Normal, Ur Leukocyte Esterase Negative, Urine RBC 0-5 SEEN, Urine WBC 0-5 SEEN, Ur Squamous Epith Cells 0-5 SEEN, Urine Bacteria 1+, Urine Mucus 0 SEEN 08/24/24 11:05: PT 13.5, INR 1.0, APTT 29.8 Imaging Radiology Impression Transvaginal US 08/24/24 08:30 IMPRESSION: Small amount of free fluid is seen in the right adnexa. No evidence of torsion. Electronically Signed: Levi Campos MD at 9:51 EST , Abdomen/Pelvis CT 08/24/24 10:02 IMPRESSION: Mild thickening and mildly dilated appendix as described. Small amount of free fluid is seen in the cul-de-sac. Clinical correlation and correlation with lab results recommended to rule out early appendicitis. Electronically Signed: Levi Campos MD at 10:39 EST , Chest X-Ray 08/24/24 11:12 IMPRESSION: Normal x-ray examination of the chest. Electronically Signed: Levi Campos MD at 11:30 EST , Assessm (more content not included)... [facility] MR/POSTOP.ANEon 08-24-2024 MR/POSTOP.[facility] Medical Records Department [address] [place] [address] Anesthesia Postop Eval I 08/24/24 1552 MR#: [id number] Acct: [id number] Name: GABE LAYTONA Rep #: [id number] : 1995 29 From: Pushpa Chandra PCP: Dr. Ketty Pickett MD Status:[facility] Y Race: H Location: [facility] Anesthesia: Postop Eval I Current Vital Signs Temperature: 98.1 F Pulse Rate: 97 Blood Pressure: 112/63 Respiratory Rate: 18 Pulse Ox: 100 Assessment Airway patent: Yes Spontaneous unlabored respirations: Yes nausea: No Vomiting: No Anesthesia Complication: No Fluid Hydration Crystalloid volume administer (ml): 1,000 Total IV fluid infused: 1,000 Progress Note Anesthesia document: Postop Eval 1 completed: Yes 08/24/24 155 Date Pushpa Puente Signature: Date CC: Signed [facility] Operative Reporton Operative Report [facility] Medical Records Department [address] [place] [address] Operative Report 08/24/24 1545 MR#: [id number] Acct: [id number] Name: LIDA CHILELMEZNOY Rep #: [id number] : 1995 29 From: Jorge Luis Colón MD PCP: Dr. Ketty Pickett MD Status:[facility] Location: [facility] Operative Report (Standard) Operative Information Surgery/Procedure Performed: Laparoscopic appendectomy Surgeon: Jorge Luis Colón Date of Procedure: 08/24/24 Procedure Start Time: 15:20 Procedure Stop Time: 15:41 Pre-Operative Diagnosis: Acute appendicitis Post-Operative Diagnosis: acute appendicitis Select all DRAINS/GRAFTS/IMPLA NTS that apply: None Type of Anesthesia: General/Regional Estimated Blood Loss: 5 Specimen collected: Yes Description of specimen(s) removed: Appendix Description of surgery: The patient was brought into the operating room and general anesthesia was induced. The left arm was tucked and the abdomen was prepped and draped in usual sterile fashion. A small midline incision was made superior to the umbilicus and deepened to the level of the fascia. The fascia was elevated and incised. The peritoneum was also elevated and incised. A finger sweep was performed and a balloon trocar was placed into the abdomen and inflated. The abdomen was insufflated to 15 mmHg and the camera was inserted and the abdomen was inspected for any injuries upon entering the abdomen. There were none. The patient was placed in Trendelenburg position and a 5 mm ports placed in the left lower quadrant and suprapubic areas under direct visualization. Next using atraumatic bowel graspers the appendix was identified. The appendix was grasped and elevated and Enseal was used to take down the mesoappendix. A stapler was used to come across the base of the appendix. The appendix was then placed in Endo Catch bag and removed through the umbilical incision. The staple line was inspected and found to be hemostatic and intact. The 2 5 mm ports are removed under direct visualization. The balloon trocar was deflated and removed and all the air was removed from the abdomen. The umbilical incision fascia was closed with an 0 Vicryl [id number] suture. The incisions were then irrigated with saline and dried. Local anesthetic was injected into the incision sites. The skin incisions were then closed with interrupted 4-0 Monocryl suture and Steri- Strips. Bandages were applied and the patient was awoken and taken to PACU in stable condition. Patient tolerated the procedure well. 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 Ketty Pickett MD; Dr. Jorge Luis Colón MD Signed [facility] Partial Thromboplast Timeon 08-24-2024 aPTT Coag (Bld) [Time] 29.8 s Normal 24.1-36.2 [facility] Comment on above: Performed By: #### L 500.2500, L100.0100 #### [facility] [address] [place], [address] ,Serum,hCG Quali.on 08-24-2024 HCG, SERUM QUAL Negative [facility] Comment on above: Performed By: #### L 500.2500, L100.0100 #### [facility] [address] [place], [address] Prothrombin Time w/INRon INR Coag (PPP) [Relative time] 1.0 {INR} [facility] Comment on above: Performed By: #### L 500.2500, L100.0100 #### [facility] [address] [place], [address] PT Coag (PPP) [Time] 13.5 s Normal 11.7-14.9 [facility] Comment on above: Performed By: #### L 500.2500, L100.0100 #### [facility] [address] [place], [address] Surgery Specimen Level IIIon 08-24-2024 Surgery Specimen Level III Patient Age/Sex Location Account Attending Physician HILTONNOY CONNELLY [facility] [id number] Dr. Jorge Luis Colón MD Specimen: [id number] Received: 08/25/24 Status: JONATHON Hong Num: [id number] Spec Type: APPENDIX Subm Dr: Dr. Jorge Luis Colón MD HEADER OPERATION: Laparoscopic appendectomy PRE-OP DIAGNOSIS: Acute appendicitis TISSUE SUBMITTED: Appendix MICROSCOPIC DIAGNOSIS Appendix, appendectomy: Acute appendicitis and periappendicitis. LEXA. 08/26/2024 MICROSCOPIC DESCRIPTION Slides are reviewed. GROSS DESCRIPTION Received in fixative is one container labeled with the patient's name and designated appendix. The specimen consists of J appendix measuring 7.0 cm in length and up to 0.6 cm in diameter. The attached periappendiceal adipose tissue measures up to 1.7 cm in width. The serosa is mildly congested. No obvious perforation is identified. The lumen is filled with a small amount of hemorrhagic material. No fecalith is identified. The entire appendix is submitted in three cassettes. Cassette 1 contains the tip and proximal portion. / SJ: 08/25/2024 TC:2 CPT: 16559 Patient Age/Sex Location Account Attending Physician NOY LAYTON [facility] [id number] Dr. Jorge Luis Colón MD Signed (signatur e on file) Dr. Rj Traore MD 08/26/24 1102 [facility] Comment on above: Performed By: #### L 500.2500, L100.0100 #### [facility] [address], [address] Transvaginal Non-on 08-24-2024 Transvaginal Non- [facility] Imaging Services [address] [place] [address] Transvaginal Non- MR#: [id number] Acct: [id number] Name: NOY LAYTON Rep #: [id number] : 1995 F 29 From: Levi strong MD PCP: Dr. Ketty Pickett MD Status: [facility] Study: Transvaginal Non- Date of Exam: Exam# [id number] Ordering Dr: Reji Farrar DO [id number] STUDY: ULTRASOUND OF THE FEMALE PELVIS - COMPLETE REASON FOR EXAM: Female, 29 years old. Right pelvic pain -- r/o torsion LMP: August 21, 2024. TECHNIQUE: Transvaginal TECHNICAL QUALITY: Adequate. COMPARISON: None. FINDINGS: The uterus is anteverted and is in a midline position. The uterus measures 8 cm x 5.7 cm x 4 cm. Normal uterine cervix. The endometrium measures 4 mm in thickness, and is hyperechoic. There is no demonstrated endometrial mass. There is no demonstrated myometrial mass. I.U.D. - The patient does not have an I.U.D. The right ovary is visualized. The right ovary measures 4.3 cm x 3.4 cm x 1.8 cm. There is no right ovarian cyst or ovarian mass. There is no visualized right adnexal mass or complex lesion. There is normal arterial and normal venous vascularity. The left ovary is visualized. The left ovary measures 2.9 cm x 3.4 cm x 2.3 cm. There is no left ovarian cyst or ovarian mass. There is no visualized left adnexal mass or complex lesion. There is normal arterial and normal venous vascularity. Small amount of free fluid is seen surrounding the right adnexa. US/Transvaginal Non- IMPRESSION: Small amount of free fluid is seen in the right adnexa. No evidence of torsion. Electronically Signed: Levi Campos MD at 9:51 EST , CC: Dr. Ketty Pickett MD; Dr. Reji Farrar DO Director Operating Room: Signed [facility] Type AND Screenon 08-24-2024 ABO and Rh group Nom (Bld) Blood group O Rh(D) positive [facility] Comment on above: Order Comment: S Performed By: #### L 500.2500, L100.0100 #### [facility] [address] [place], [address] Urinalysis, Completeon 08-24 BACTERIA 1+ /hpf Normal None Seen [facility] Comment on above: Order Comment: CLEAN CATCH Performed By: #### L 500.2500, L100.0100 #### [facility] [address] [place], [address] EPI,SQUAMOUS 0-5 SEEN Normal 5-10 [facility] Comment on above: Order Comment: CLEAN CATCH Performed By: #### L 500.2500, L100.0100 #### [facility] [address] [place], [address] RBC 0-5 SEEN Normal 0-5 [facility] Comment on above: Order Comment: CLEAN CATCH Performed By: #### L 500.2500, L100.0100 #### [facility] [address] [place], [address] WBC 0-5 SEEN Normal 0-5 [facility] Comment on above: Order Comment: CLEAN CATCH Performed By: #### L 500.2500, L100.0100 #### [facility] [address] [place], [address] Mucus Ql (Urine sed) 0 SEEN Normal [facility] Comment on above: Order Comment: CLEAN CATCH Performed By: #### L 500.2500, L100.0100 #### [facility] [address] [place], [address] Absolute lymphocyte countOrd ered By: Ketty Pickett on 12-11-2023 Lymphocytes Auto (Unsp spec) [#/Vol] 1.85 10*3/uL 0.83-4.51 [facility] Automated lymphocyte count a s percentage of total leukocytesOrdered By: Ketty Pickett on 12-11-2023 Lymphocytes/100 WBC Auto (Unsp spec) 24.7 % 19-41 [facility] Basophil percentageOrdered B y: Ketty Nieves on 12-11-2023 Basophils/100 WBC (Bld) 0.5 % 0-1 [facility] Bilirubin [Mass/Vol] 0.50 mg/dL 0.20-1.00 [facility] Comment on above: For patients on eltr ombopag therapy, use of Dimension [place] TBIL is not recommended. Chloride [Moles/Vol] 106 mmol/L 98-107 [facility] Cholesterol [Mass/Vol] 204 mg/dL <200 [facility] Comment on above: <200 mg/dL Desirable 200-240 mg/dL Borderline >240 mg/dL High Risk Eosinophils/100 WBC (Bld) 1.6 % 0-5 [facility] Glucose [Mass/Vol] 82 mg/dL 74-[address] [facility] Hemoglobin (Bld) [Mass/Vol] 12.5 g/dL 12.0-15.0 [facility] Monocytes/100 WBC (Bld) 5.9 % 0-10 [facility] Neutrophils (Bld) [#/Vol] 5.0 10*3/uL 2.0-7.7 [facility] Neutrophils/100 WBC (Bld) 67.0 % 47-70 [facility] Potassium [Moles/Vol] 3.9 mmol/L 3.5-5.1 [facility] Protein [Mass/Vol] 6.9 g/dL 6.4-8.[address] [facility] Sodium [Moles/Vol] 138 mmol/L 136-[address] [facility] Triglyceride [Mass/Vol] 208 mg/dL <199 [facility] Comment on above: The drugs N-Acetylcy steine and Metamizole may falsely depress this assay.Serum Triglycerides Reference Interval Normal <150 mg/dL Borderline high 150 - 199 mg/dL High 200 - 499 mg/dL Very High > or = 500 mg/dL WBC (Bld) [#/Vol] 7.5 10*3/uL 4.4-11.[address] [facility] Determination of erythrocyte mean corpuscular volume (MCV)Ordered By: Ketty Picektt on 12-11-2023 MCV (RBC) [Entitic vol] 94.3 fL 81-99 [facility] Erythrocyte distribution wid th ratioOrdered By: Ketty Pickett on 12-11-2023 Erythrocyte distribution width (RBC) [Ratio] 12.5 % 11.6-14.6 [facility] Erythrocyte distribution wid th standard deviationOrdered By: Ketty Pickett on 12-11-2023 Erythrocyte distribution width (RBC) [Entitic vol] 43.8 fL 35.1-43.[address] [facility] Hematocrit Auto (Bld) [Volum e fraction]Ordered By: Ketty Pickett on 12-11-2023 Hematocrit (Bld) [Volume fraction] 38.0 % 37-47 [facility] Immature granulocytes/100 WB C Auto (Bld)Ordered By: Ketty Pickett on 12-11-2023 Immature granulocytes/100 WBC (Bld) 0.300 % 0.0-0.9 [facility] Comment on above: IG% - Immature Granu locytes (promyelocytes, myelocytes and metamyelocytes) > 1% indicates that a LEFT SHIFT is Present. Laboratory - Chemistry and C hemistry - challengeOrdered By: Ketty Pickett on 12-11-2023 Albumin/Globulin [Mass ratio] 1.0 {ratio} 0.9-2.4 [facility] ALP [Catalytic activity/Vol] 42 U/L 45-117 [facility] ALT [Catalytic activity/Vol] 17 U/L 13-56 [facility] Cholesterol in HDL [Mass/Vol] 77 mg/dL >40 [facility] Comment on above: The drugs N-Acetylcy steine and Metamizole may falsely depress this assay. Reference Range HDL <40 mg/dL Low HDL Cholesterol HDL >or= 60 mg/dL High HDL Cholesterol Cholesterol in LDL [Mass/Vol] 85 mg/dL 0-130 [facility] CO2 [Moles/Vol] 23.0 mmol/L 21.0-32.0 [facility] Globulin (S) [Mass/Vol] 3.5 g/dL 2.2-4.2 [facility] Urea nitrogen/Creatinine [Mass ratio] 11.6 mg/mg 10-20 [facility] - Hematology and Cell countsOrdered By: Ketty Pickett on 12-11-2023 MCH (RBC) [Entitic mass] 31.0 pg 27.0-32.0 [facility] MCHC (RBC) [Mass/Vol] 32.9 g/dL 32-36 [facility] Nucleated RBC/100 WBC (Bld) [Ratio] 0 % 0-5 [facility] Platelet mean volume (Bld) [Entitic vol] 11.4 fL 6.2-12.0 [facility] Platelets (Bld) [#/Vol] 281 10*3/uL 150-450 [facility] No Panel InformationOrdered By: Ketty Pickett on 12-11-2023 Estimated GFR (MDRD) Amer 112 mL/min >60 [facility] Comment on above: GFR Calc Estimated GFR (MDRD) Non-Af Amer 92 mL/min >60 [facility] Comment on above: Non- GFR Calc VLDL Cholesterol 42 mg/dL 5-40 [facility] RBC Auto (Bld) [#/Vol]Ordere d By: Ketty Pickett on 12-11-2023 RBC (Bld) [#/Vol] 4.03 10*6/uL 4.2-5.4 [facility] Serum or plasma calcium goldy urement (mass/volume)Ordered By: Ketty Pickett on 12-11-2023 Calcium [Mass/Vol] 9.3 mg/dL 8.5-10.[address] [facility] Serum or plasma creatinine m easurement (mass/volume)Ordered By: Ketty Pickett on 12-11-2023 Creatinine [Mass/Vol] 0.78 mg/dL 0.55-1.02 [facility] Comment on above: The validity of the calculated GFR & GFRAA in patients over 70 years has not been determined. Clinical correlation is essential. Serum or plasma urea nitroge n measurement (mass/volume)Ordered By: Ketty Pickett on 12-11-2023 Urea nitrogen [Mass/Vol] 9 mg/dL 7-18 [facility] Thin prep Papanicolaou smear with manual screeningOrdered By: Ketty Pickett on 12-11-2023 Thin prep Papanicolaou smear with manual screening 3.4 g/dL 3.2-5.0 [facility] Thin prep Papanicolaou smear with manual screening 12 U/L 15-37 [facility] Thin prep Papanicolaou smear with manual screening 9 5-15 [facility] Vital Signs Date Time Vital Sign Value Performing Clinician Faci lity 05-10-2025 09:22-0400 Body height 172.[address] Ketty Pickett MD Work Phone: [facility] 05-10-2025 09:22-0400 Body mass index (BMI) [Ratio] 21.6 kg/m2 Dr. Ketty Pickett MD Work Phone: [facility] 05-10-2025 09:22-0400 Body temperature 98.7 [degF] Dr. Ketty Pickett MD Work Phone: [facility] 05-10-2025 09:22-0400 Body weight 64.[address] Ketty Pickett MD Work Phone: [facility] 05-10-2025 09:22-0400 Diastolic blood pressure 54 mm[Hg] Dr. Ketty Pickett MD Work Phone: [facility] 05-10-2025 09:22-0400 Heart rate 86 /min Dr. Ketty Pickett MD Work Phone: [facility] 05-10-2025 09:22-0400 Respiratory rate 16 /min Dr. Ketty Pickett MD Work Phone: [facility] 05-10-2025 09:22-0400 SaO2% (BldA) [Mass fraction] 97 % Dr. Ketty Pickett MD Work Phone: [facility] 05-10-2025 09:22-0400 Systolic blood pressure 106 mm[Hg] Dr. Ketty Pickett MD Work Phone: [facility] 04-21-2025 08:27-0400 Body height 172.[address] Ketty Pickett MD Work Phone: [facility] 04-21-2025 08:23-0400 Body mass index (BMI) [Ratio] 21.2 kg/m2 Dr. Ketty Pickett MD Work Phone: [facility] 04-21-2025 08:23-0400 Body weight 63.[address] Ketty Pickett MD Work Phone: [facility] 04-21-2025 08:23-0400 Diastolic blood pressure 81 mm[Hg] Dr. Ketty Pickett MD Work Phone: [facility] 04-21-2025 08:23-0400 Systolic blood pressure 117 mm[Hg] Dr. Ketty Pickett MD Work Phone: [facility] 02-22-2025 10:12-0400 Body height 172.[address] Ketty Pickett MD Work Phone: [facility] 02-22-2025 10:12-0400 Body mass index (BMI) [Ratio] 21.4 kg/m2 Dr. Ketty Pickett MD Work Phone: [facility] 02-22-2025 10:12-0400 Body weight 64.[address] Ketty Pickett MD Work Phone: [facility] 02-22-2025 10:12-0400 Diastolic blood pressure 67 mm[Hg] Dr. Ketty Pickett MD Work Phone: [facility] 02-22-2025 10:12-0400 Heart rate 70 /min Dr. Ketty Pickett MD Work Phone: [facility] 02-22-2025 10:12-0400 SaO2% (BldA) [Mass fraction] 99 % Dr. Ketty Pickett MD Work Phone: [facility] 02-22-2025 10:12-0400 Systolic blood pressure 118 mm[Hg] Dr. Ketty Pickett MD Work Phone: [facility] 02-15-2025 08:54-0400 Body height 172.[address] Ketty Pickett MD Work Phone: [facility] 02-15-2025 08:54-0400 Body mass index (BMI) [Ratio] 20.9 kg/m2 Dr. Ketty Pickett MD Work Phone: [facility] 02-15-2025 08:54-0400 Body temperature 97.2 [degF] Dr. Ketty Pickett MD Work Phone: [facility] 02-15-2025 08:54-0400 Body weight 62.[address] Ketty Pickett MD Work Phone: [facility] 02-15-2025 08:54-0400 Diastolic blood pressure 66 mm[Hg] Dr. Ketty Pickett MD Work Phone: [facility] 02-15-2025 08:54-0400 Heart rate 77 /min Dr. Ketty Pickett MD Work Phone: [facility] 02-15-2025 08:54-0400 Respiratory rate 16 /min Dr. Ketty Pickett MD Work Phone: [facility] 02-15-2025 08:54-0400 SaO2% (BldA) [Mass fraction] 98 % Dr. Ketty Pickett MD Work Phone: [facility] 02-15-2025 08:54-0400 Systolic blood pressure 108 mm[Hg] Dr. Ketty Pickett MD Work Phone: [facility] 12-11-2023 08:57-0500 Body height 175.[address] Ketty Pickett Work Phone: [facility] 12-11-2023 08:57-0500 Body mass index (BMI) [Ratio] 20.8 kg/m2 Dr. Ketty Pickett Work Phone: [facility] 12-11-2023 08:57-0500 Body temperature 97.9 [degF] Dr. Ketty Pickett Work Phone: [facility] 12-11-2023 08:57-0500 Body weight 63.[address] Ketty Pickett Work Phone: [facility] 12-11-2023 08:57-0500 Diastolic blood pressure 74 mm[Hg] Dr. Ketty Pickett Work Phone: [facility] 12-11-2023 08:57-0500 Heart rate 53 /min Dr. Ketty Pickett Work Phone: [facility] 12-11-2023 08:57-0500 Respiratory rate 16 /min Dr. Ketty Pickett Work Phone: [facility] 12-11-2023 08:57-0500 SaO2% (BldA) [Mass fraction] 99 % Dr. Ketty Pickett Work Phone: [facility] 12-11-2023 08:57-0500 Systolic blood pressure 128 mm[Hg] Dr. Ketty Pickett Work Phone: [facility] Encounters Encounter Date Encounter Type Care Provider Facility Start: 05-10-2025 End: 05-10-2025 Patient encounter procedure Inés Ungerer ENGINEERED WOOD DESIGNER-C -[facility] Work Phone: Start: 05-10-2025 End: 05-10-[address] Ketty Pickett MD Work Phone: -[facility] Start: 04-21-2025 End: 04-21-[address] Ketty Pickett MD Work Phone: -[facility] Start: 04-21-2025 End: 04-21-2025 Patient encounter procedure Stacey RIBEIRO -[facility] Work Phone: Start: 04-21-2025 End: 04-21-2025 Patient encounter procedure Stacey RIBEIRO -[facility] @ Start: 04-21-2025 End: 04-21-[address] Ketty Pickett MD Work Phone: -[facility] @ Start: 04-21-2025 End: 04-21-2025 ambulatory Stacey Marquis Facility:[facility] Start: 04-09-2025 End: 04-09-[address] Ketty Pickett MD Work Phone: -[facility] Start: 04-09-2025 End: 04-09-[address] Colin Jim MD -[facility] Start: 04-09-2025 End: 04-09-2025 ambulatory [facility] Facility:[facility] Start: 03-29-2025 End: 03-29-[address] Ketty Pickett MD Work Phone: [facility] Work Phone: Start: 03-29-2025 End: 03-29-[address] Colin Jim MD -[facility] Start: 03-29-2025 End: 03-29-2025 ambulatory [facility] Facility:[facility] Start: 03-09-2025 End: 03-09-[address] Ketty Pickett MD Work Phone: [facility] Work Phone: Start: 03-09-2025 End: 03-09-[address] Colin Jim MD -[facility] Start: 03-09-2025 End: 03-09-2025 ambulatory [facility] Facility:[facility] Start: 02-24-2025 ambulatory [facility] Facil ty:[facility] Start: 02-22-2025 End: 02-22-[address] Colin Jim MD -[facility] Work Phone: Start: 02-22-2025 End: 02-22-2025 ambulatory [facility] Start: 02-20-2025 End: 02-20-[address] Ketty Pickett MD Work Phone: [facility] Work Phone: Start: 02-20-2025 End: 02-20-[address] Alexus Martinez MD -Ultrasound [facility] Work Phone: Start: 02-19-[address] Byron Martinez MD -Cardiovascular Services Work Phone: Start: 02-19-2025 End: 02-20-2025 ambulatory [facility] Facility:[facility] Start: 02-19-2025 Non-patient / Non-visit Dr. Genevieve Fitzgerald MD -[facility] Work Phone: Start: 02-15-2025 End: 02-15-[address] Ketty Pickett MD Work Phone: [facility] Work Phone: Start: 02-15-2025 End: 02-15-[address] Alexus Martinez MD -Laboratory, [facility] Start: 02-15-2025 End: 02-15-[address] Alexus Martinez MD -[facility] Work Phone: Start: 02-15-2025 End: 02-15-2025 ambulatory Ketty Pickett Facility:[facility] Start: 02-15-2025 End: 02-15-2025 ambulatory Alexus Martinez Facility:[facility] Start: 09-04-2024 End: 09-04-2024 ambulatory Ketty Pickett [facility] Start: 08-24-2024 End: 08-24-2024 ambulatory Jorge Luis Colón Facility:[facility] Start: 12-11-2023 End: 12-11-[address] Ketty Pickett Work Phone: [facility] Work Phone: Start: 12-11-2023 End: 12-11-[address] Ketty Pickett Work Phone: [facility]-Laboratory, [facility] Start: 12-11-2023 End: 12-11-[address] Ketty Pickett Work Phone: [facility] Work Phone: Procedures Date Procedure Procedure Detail Performing Clinician Start: 04-21-2025 Liquid based cervica l cytology screening Dr. Ketty Pickett MD Work Phone: Comment on above: NEGATIVE FOR INTRAEP ITHELIAL LESION OR MALIGNANCY. This liquid based Th inPrep(R) pap test was screened withthe use of an image guided system. Start: 02-20-2025 US scan of thyroid Dr. Ketty Pickett MD Work Phone: Plan of Treatment Date Care Activity Detail Author Start: 02-15-[address] [facility] Work Phone: Start: 02-15-2025 Evaluation of diagno stic study results [facility] Cardiac event recording [facility] Liquid based cervica l cytology screening [facility] Patient referral [facility] Work Phone: T4 free measurement [facility] Thyroid stimulating hormone measurement [facility] Thyroperoxidase Ab [ Units/volume] in Serum or Plasma [facility] Triiodothyronine (T3 ).reverse [Mass/volume] in Serum or Plasma [facility] pital Triiodothyronine, free measurement [facility] Carotid arteries [facility] Carotid arteries [facility] Thyroid gland [facility] Immunizations Immunization Date Immunization Notes Care Provider [place] [facility] 12-11-2023 influenza, injectabl e, quadrivalent, preservative free Dr. Ketty Pickett Work Phone: [facility] 01-29-2023 Covid Pfizer Bivalen t Booster Dr. Ketty Pickett Work Phone: [facility] Payers Date Payer Category Payer Unknown [id number] 2024 Self-pay 2024 Unknown [id number] Unknown [id number] 2.16.8 [id number] Unknown [id number] 2.16.8 [id number] Unknown [id number] 2.16.8 [id number] Unknown [id number] 2.16.8 [id number] Unknown [id number] 2.16.8 [id number] Unknown [id number] 2.16.8 [id number] Unknown [id number] 2.16.8 [id number] Unknown [id number] 2.16.8 [id number] Unknown [id number] 2.16.8 [id number] Unknown [id number] 2.16.8 [id number] Unknown [id number] 2.16.8 [id number] Unknown [id number] 2.16.8 [id number] Unknown [id number] 2.16.8 [id number] Unknown [id number] 2.16.8 [id number] Unknown [id number] 2.16.8 [id number] Unknown [id number] 2.16.8 [id number] Unknown [id number] 2.16.8 [id number] Social History Date Type Detail Facility Start: 12-11-2023 Tobacco smoking stat us CAIS Unknown if ever smoked [facility] Start: 1995 Sex Assigned At Female [facility] Start: 08-24-2024 End: 04-21-2025 Tobacco smoking status NHIS Never smoked tobacco (finding) [facility] Gender Identity Identifies as fe male gender (finding) [facility] Sexual Orientation Heterosexual (finding) [facility] Medical Equipment Procedure Code Equipment Code Equipment Origin al Text Equipment Identifier Dates Appendectomy, laparoscopic Surgical staple loading unit, non-cutting [id number] [facility] Start: 08-24-2024 Progress note 04-21-2025 Note Date & Type Note Facility 04-21-2025 Progress note [facility] Radiology Diagnostic study note 02-23-2025 Note Date & Type Note Facility 02-23-2025 Radiology Diagnostic study note [facility] Imaging Services [address] [place], [place] [id number] Thyroid MR#: [id number] Acct: [id number] Name: NOY LAYTON Rep #: [id number] : 1995 F 29 From: Rito Campos MD PCP: Dr. Alexus Martinez MD Status: R EG CLI Study:Thyroid Date of Exam: 02/20/25 Exam# [id number] Ordering Dr: Devin Martinez MD PROCEDURE: THYROID 02/20/2025 REASON FOR EXAM: ABNORMAL THYROID FUNCTION/HYPERTHYROIDISM TECHNIQUE: High-frequency thyroid ultrasound, including grayscale and color-flow images. REFERENCE LINKS: TI-RADS Chart: [email or web address] TI-RADS Calculator Tool with Reference Images: [email or web address] s-[email or web address]/ COMPARISON: None FINDINGS: Right thyroid lobe size: 5.3 cm x 2 cm x 1.7 cm Left thyroid lobe size: 5.4 cm x 1.6 cm x 1.7 cm Isthmus: 0.5 cm Background parenchymal echotexture is heterogeneous Nodules: Multiple bilateral small predominantly cystic nodule seen throughout both lobes of the thyroid suggestive of multinodular changes. US/Thyroid IMPRESSION: Findings suggestive of enlarged thyroid with multiple nodular densities bilaterally. Correlation with nuclear medicine uptake and thyroid scan recommended. RECOMMENDATION: Based on most suspicious nodule. Nodule size = largest diameter Only evaluate nodule if =>5 mm. Growth > 20% in 2 dimensions = worsening. Follow up to 4 nodules. Recommend biopsy for no more than 2 nodules. Reading Location: [facility] CC: Dr. Alexus Martinez MD ~ Director Operating Room: Signed [facility] Evaluation note 02-15-2025 Note Date & Type Note Facility 02-15-2025 Evaluation note Diagnosis Onset Date Resolution Bruit of left carotid artery acute February 15, 2025 8: 43am Palpitations acute February 15 8:43am Pre-conception counseling acute February 15, 2025 8: 43am Acne chronic February 15, 2025 8:43am [facility] Work Phone: Evaluation note 02-15-2025 Note Date & Type Note Facility 02-15-2025 Evaluation note Diagnosis Onset Date Resolution Bruit of left carotid artery acute February 15, 2025 8: 43am Palpitations acute February 15 8:43am Pre-conception counseling acute February 15, 2025 8: 43am Acne chronic February 15, 2025 8:43am Thyrotoxicosis due to Graves' disease acute February 22, 2025 10:12am [facility] Work Phone: Evaluation note 02-15-2025 Note Date & Type Note Facility 02-15-2025 Evaluation note Diagnosis Onset Date Resolution Bruit of left carotid artery acute February 15, 2025 8: 43am Palpitations acute February 15 8:43am Pre-conception counseling acute February 15, 2025 8: 43am Acne chronic February 15, 2025 8:43am Thyrotoxicosis due to Graves' disease acute February 22, 2025 10:12am Pre-conception counseling acute April 21, 2025 8:15am [facility] Work Phone: Evaluation note 02-15-2025 Note Date & Type Note Facility 02-15-2025 Evaluation note Diagnosis Onset Date Resolution Bruit of left carotid artery acute February 15, 2025 8: 43am Palpitations acute February 15 8:43am Pre-conception counseling acute February 15, 2025 8: 43am Acne chronic February 15, 2025 8:43am Thyrotoxicosis due to Graves' disease acute February 22, 2025 10:12am Pre-conception counseling acute April 21, 2025 8:15am Depression acute May 10 8:58am [facility] [facility] Work Phone: Evaluation note Note Date & Type Note Facility Evaluation note Diagnosis Onset Date Jaw clicking noneactive Oral contraceptive use nonea ctive Immunization due noneactive Establishing care with mg rocha, encounter for noneactive Decreased ROM of ankle nonea ctive Hypertriglyceridemia noneact mor Annual physical exam noneact mor [facility] Work Phone: Hospital Discharge instructions Note Date & Type Note Facility Hospital Discharge instructions 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 Is patient in pain?: No Allergies cat dander Allergy (Mild, Verified 04/21/25 08:24) Other Medications ?Medication ?Instructions ?Recorded ?Confirmed ?Type adapalene 0.3 % topical gel 1 applic topical QPM #45 g diane 02/15/25 04/21/25 Rx clindamycin phosphate 1 % topical 1 applic topical QAM AND QHS #60 02/15/25 04/21/25 Rx gel grams methimazole 5 mg tablet 15 mg (3 x 5 mg) PO QDAY #90 tabs 03/09/25 04/21/25 Rx Is last menstrual period known: Yes Last Menstrual Period: 04/12/25 Post menopausal: No Patient : No : No Do you think of yourself as: straight/heterosexual Current gender identity: female Control Method: none PFSH Medical History Thyrotoxicosis due to Graves' disease Acne Pre-conception counseling Bruit of left carotid artery Palpitations Acute appendicitis Abdominal pain Pelvic pain Dislocated jaw Vision problems High triglycerides Allergies Rib fracture Asthma Surgical History History of laparoscopic appendectomy No pertinent past surgical history S/P rhinoplasty Family History Mother Asthma Arrhythmia afib Brother Asthma Arrhythmia afib Grandmother Hypertension Grandmother Hypertension Father Hepatitis Social History adopted: No household members: spouse housing: house number of children: 0 current occupational status: employed 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 - [employer] current occupational exposures/hazards: No pets and animals: No leisure activities: other history of recent travel: No sexually active: Yes Smoking Status: Never smoker Electronic Cigarette Use: not used second hand exposure: No alcohol intake: current alcohol intake frequency: a few times a month substance use type: does not use well-balanced diet: daily or most days caffeine: No eating out: 1-3 times/week during the past year weight has: remained stable frequency: 3-4 times per week seatbelt use: always do you feel safe at home: Yes additional social history: - [place] HPI Fertility Consult ([facility]) Details: NOY PALMER is a 30 year old who presents for infertility consult. She was about a year and a half ago and would like to start a family within the next couple years. She recently was dx with graves dx and sees Dr Jim for this. She is on Methimazole currently and is aware she will need to wait until the treatment is complete prior to TTC. She is having monthly cyclesand reports having ovulation sx with her cycles. She does notice some discomfortwith intercourse occasionally and has noticed a decrease in libido. Her last pap(nl) was 2 years ago in [place] and is unable to get records. Desires a repeat pap today. Denies other significant medical hx. Female Reproductive History Last Menstrual Period: 04/12/25 Cycle Length: 21-35 Bleeding Duration: 5 Questions: metorrhagia: No, sexually active: Yes, dyspareunia: Yes (occasionally) and PCB: No Menopausal Symptoms: Yes mood changes, Yes difficulty concentrating and Yes change in libido ROS Const Constitutional: Reports system reviewed and no additional complaints, except as documented Cardio Card: Reports system reviewed and no additional complaints, except as documented Resp Resp: Reports system reviewed and no additional complaints, except as documented GI GI: Reports system reviewed and no additional complaints, except as documented : Reports system reviewed and no additional complaints, except as documented; Denies difficulty voiding, dysuria or urinary frequency Skin Skin/Breast: Reports system reviewed and no additional complaints, except as documented Neuro Neuro: Reports system reviewed and no additional complaints, except as documented Psych Psych: Reports change in libido and difficulty concentrating Exam Const General: cooperative, healthy appearing, comfortable and no acute distress Orientation: alert, awake and oriented x3 Neck Neck: normal visual inspection and full ROM Thyroid: thyroid normal Chest Breast inspection: normal inspection of the breasts and normal inspection of theaxillae Breast palpation: normal palpation of the breasts and normal palpation of the axillae Resp Effort & Inspection: normal respiratory effort, able to speak in complete sentences and symmetric chest movement GI Inspection: normal to inspection Palpation: soft Rectal Exam: visual inspection normal External Female Exam: normal external appearance and normal appearance of the urethra Urethra: normal appearance of the urethra Speculum Exam - Vagina: normal appearance of the vagina and normal vaginal discharge Speculum Exam - Cervix: normal appearance of the cervix and nontender Bimanual Exam- Vagina & Uterus: normal bimanual exam, normal palpation, uterine size normal, No tender and non-tender Bimanual Exam- Adnexa, other: normal Pelvic Support: normal Skin General: no rashes or lesions noted Neuro General: patient alert, patient awake and patient oriented x3 Cognition: normal cognition Speech: speech normal Gait: normal gait Extrem General: normal to inspection and full ROM Psych Appearance: grossly normal and well kempt Mental Status: mental status grossly normal Affect: normal affect Speech and Movement: speech and movement normal Attitude: cooperative Thought Process: normal Thought Content: normal Judgment: judgment good Coding Level of Care Code Off vis,new,level 4 Diagnoses Pre-conception counseling Z31.69 Assessment and Plan Assessment and Plan (1) Pre-conception counseling: Status: Acute Plan: pap breast exam follow up in one year for annual/discuss safe timing of 04/21/25 7069 <Electronically signed by Stacey henriquez CNM> Date _ Stacey Marquis CNM Cosigner Signature: Date (if applicable) CC: ~ [facility] Work Phone: Chief Complaint and Reason for Visit 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 - [facility] S [facility] Reason for Visit Jaw clicking Oral contraceptive use Immunization due Establishing care with new doctor, encounter for Decreased ROM of ankle Hypertriglyceridemia Annual physical exam Chief Complaint Admit Date EST NEW PT - FORMER [facility]ES February 15 8:43am Reason for Visit Admit Date Bruit of left carotid artery February 15 8:43am Palpitations February 15, 2025 8:43am Pre-conception counseling February 15, 2025 8:43am Acne February 15, 2025 8:43am Chief Complaint Admit Date EST NEW PT - FORMER [facility] February 15 8:43am Palpitations February 19, 2025 12:06p m HYPERTHYROIDISM, ABN THYROID LABS February 202024 10:42am Hyperthyroid February 22, 2025 10:12 am Reason for Visit Admit Date Bruit of left carotid artery February 15 8:43am Palpitations February 15, 2025 8:43am Pre-conception counseling February 15, 2025 8:43am Acne February 15, 2025 8:43am Thyrotoxicosis due to Graves' disease Ma y 2024 10:12am Chief Complaint Admit Date EST NEW PT - FORMER [facility] February 15 8:43am 30 DAY MONITOR February 19, 2025 7:00am Palpitations February 19, 2025 12:06p m HYPERTHYROIDISM, ABN THYROID LABS February 202024 10:42am Hyperthyroid February 22, 2025 10:12 am Chief Complaint Admit Date EST NEW PT - FORMER NIEVES February 15 8:43am 30 DAY MONITOR February 19, 2025 7:00am Palpitations February 19, 2025 12:06p m HYPERTHYROIDISM, ABN THYROID LABS February 202024 10:42am Hyperthyroid February 22, 2025 10:12 am Fertility Consult ([facility]) April 21, 2025 8 :15am Reason for Visit Admit Date Bruit of left carotid artery February 15 8:43am Palpitations February 15, 2025 8:43am Pre-conception counseling February 15, 2025 8:43am Acne February 15, 2025 8:43am Thyrotoxicosis due to Graves' disease Ma y 2024 10:12am Pre-conception counseling April 21, 2025 8:15am Chief Complaint Admit Date EST NEW PT - FORMER NIEVES February 15 8:43am 30 DAY MONITOR February 19, 2025 7:00am Palpitations February 19, 2025 12:06p m HYPERTHYROIDISM, ABN THYROID LABS February 202024 10:42am Hyperthyroid February 22, 2025 10:12 am Fertility Consult ([facility]) April 21, 2025 8 :15am ACUTE- DEPRESSION May 10, 2025 8:58 am Reason for Visit Admit Date Bruit of left carotid artery February 15 8:43am Palpitations February 15, 2025 8:43am Pre-conception counseling February 15, 2025 8:43am Acne February 15, 2025 8:43am Thyrotoxicosis due to Graves' disease Ma y 2024 10:12am Pre-conception counseling April 21, 2025 8:15am Depression May 10, 2025 8:58 am Family History No Family History Records Found Relationship Condition Age at Onset Recorded Date/T harish mother Asthma Unknown Cardiac arrhythmia Unknown brother Asthma Unknown grandmother Hypertension Unknown father Hepatitis Unknown Relationship Condition Age at Onset Recorded Date/T harish mother Asthma Unknown Ventricular premature beats Unknown brother Asthma Unknown Cardiac arrhythmia Unknown grandmother Hypertension Unknown father Hepatitis Unknown Summary Purpose Advance Directives No Advanced Directives Records Found Additional Source Comments Care Teams (unrecognized sec tion and content) Team Status: Active Member Role Status Dates Dr. Ketty Pickett MD Primary Care Provider Active Team Status: Inactive Member Role Status Dates Dr. Ketty Pickett MD Attending Provider Active Team Status: Inactive Member Role Status Dates Dr. Ketty Pickett MD Primary Care Provider, Attendi Provider Active Team Status: Active Member Role Status Dates Dr. Alexus Martinez MD Primary Care Provider Active Team Status: Inactive Member Role Status Dates Dr. Ketty Pickett MD Primary Care Provider Active Start: February 15, 2025 End: February 15, 2025 Dr. Ketty Pickett MD Referring Provider Active Start: February 15, 2025 End: February 15, 2025 Dr. Alexus Martinez MD Attending Provider Active Start: February 15, 2025 End: February 15, 2025 Team Status: Inactive Member Role Status Dates Dr. Alexus Martinez MD Primary Care Provider Active Start: February 15, 2025 End: February 15, 2025 Dr. Alexus Martinez MD Attending Provider Active Start: February 15, 2025 End: February 15, 2025 Dr. Alexus Martinez MD Referring Provider Active Start: February 15, 2025 End: February 15, 2025 Team Status: Active Member Role Status Dates Dr. Alexus Martinez MD Primary Care Provider Active Start: February 19, 2025 Dr. Alexus Martinez MD Attending Provider Active Start: February 19, 2025 Dr. Alexus Martinez MD Referring Provider Active Start: February 19, 2025 Team Status: Inactive Member Role Status Dates Dr. Alexus Martinez MD Primary Care Provider Active Start: February 20, 2025 End: February 20, 2025 Dr. Alexus Martinez MD Attending Provider Active Start: February 20, 2025 End: February 20, 2025 Dr. Alexus Martinez MD Referring Provider Active Start: February 20, 2025 End: February 20, 2025 Team Status: Inactive Member Role Status Dates Dr. Alexus Martinez MD Primary Care Provider Active Start: February 22, 2025 End: February 22, 2025 Dr. Alexus Martinez MD Referring Provider Active Start: February 22, 2025 End: February 22, 2025 Dr. Colin Jim MD Attending Provider Active Sta rt: February 22, 2025 End: February 22, 2025 Team Status: Inactive Member Role Status Dates Dr. Alexus Martinez MD Primary Care Provider Active Start: March 09, 2025 End: March 09, 2025 Dr. Colin Jim MD Attending Provider Active Sta rt: March 09, 2025 End: March 09, 2025 Dr. Colin Jim MD Referring Provider Active Sta rt: March 09, 2025 End: March 09, 2025 Team Status: Active Member Role Status Dates Dr. Alexus Martinez MD Primary Care Provider Active Start: February 19, 2025 Dr. Alexus Martinez MD Referring Provider Active Start: February 19, 2025 Dr. Genevieve Fitzgerald MD Attending Provider Active Start: February 19, 2025 Team Status: Inactive Member Role Status Dates Dr. Alexus Martinez MD Primary Care Provider Active Start: March 29, 2025 End: March 29, 2025 Dr. Colin Jim MD Attending Provider Active Sta rt: March 29, 2025 End: March 29, 2025 Dr. Colin Jim MD Referring Provider Active Sta rt: March 29, 2025 End: March 29, 2025 Team Status: Active Member Role/Relationship Status Dates Dr. Alexus Martinez MD Primary Care Provider Active Team Status: Inactive Member Role/Relationship Status Dates Dr. Ketty Pickett MD Primary Care Provider Active Start: February 15, 2025 End: February 15, 2025 Dr. Ketty Pickett MD Referring Provider Active Start: February 15, 2025 End: February 15, 2025 Dr. Alexus Martinez MD Attending Provider Active Start: February 15, 2025 End: February 15, 2025 Team Status: Inactive Member Role/Relationship Status Dates Dr. Alexus Martinez MD Primary Care Provider Active Start: February 15, 2025 End: February 15, 2025 Dr. Alexus Martinez MD Attending Provider Active Start: February 15, 2025 End: February 15, 2025 Dr. Alexus Martinez MD Referring Provider Active Start: February 15, 2025 End: February 15, 2025 Team Status: Active Member Role/Relationship Status Dates Dr. Alexus Martinez MD Primary Care Provider Active Start: February 19, 2025 Dr. Alexus Martinez MD Referring Provider Active Start: February 19, 2025 Dr. Genevieve Fitzgerald MD Attending Provider Active Start: February 19, 2025 Team Status: Active Member Role/Relationship Status Dates Dr. Alexus Martinez MD Primary Care Provider Active Start: February 19, 2025 Dr. Alexus Martinez MD Attending Provider Active Start: February 19, 2025 Dr. Alexus Martinez MD Referring Provider Active Start: February 19, 2025 Team Status: Inactive Member Role/Relationship Status Dates Dr. Alexus Martinez MD Primary Care Provider Active Start: February 20, 2025 End: February 20, 2025 Dr. Alexus Martinez MD Attending Provider Active Start: February 20, 2025 End: February 20, 2025 Dr. Alexus Martinez MD Referring Provider Active Start: February 20, 2025 End: February 20, 2025 Team Status: Inactive Member Role/Relationship Status Dates Dr. Alexus Martinez MD Primary Care Provider Active Start: February 22, 2025 End: February 22, 2025 Dr. Alexus Martinez MD Referring Provider Active Start: February 22, 2025 End: February 22, 2025 Dr. Colin Jim MD Attending Provider Active Sta rt: February 22, 2025 End: February 22, 2025 Team Status: Inactive Member Role/Relationship Status Dates Dr. Alexus Martinez MD Primary Care Provider Active Start: March 09, 2025 End: March 09, 2025 Dr. Colin Jim MD Attending Provider Active Sta rt: March 09, 2025 End: March 09, 2025 Dr. Colin Jim MD Referring Provider Active Sta rt: March 09, 2025 End: March 09, 2025 Team Status: Inactive Member Role/Relationship Status Dates Dr. Alexus Martinez MD Primary Care Provider Active Start: March 29, 2025 End: March 29, 2025 Dr. Colin Jim MD Attending Provider Active Sta rt: March 29, 2025 End: March 29, 2025 Dr. Colin Jim MD Referring Provider Active Sta rt: March 29, 2025 End: March 29, 2025 Team Status: Inactive Member Role/Relationship Status Dates Dr. Alexus Martinez MD Primary Care Provider Active Start: April 09, 2025 End: April 09, 2025 Dr. Colin Jim MD Attending Provider Active Sta rt: April 09, 2025 End: April 09, 2025 Dr. Colin Jim MD Referring Provider Active Sta rt: April 09, 2025 End: April 09, 2025 Team Status: Inactive Member Role/Relationship Status Dates Dr. Alexus Martinez MD Primary Care Provider Active Start: April 21, 2025 End: April 21, 2025 Dr. Alexus Martinez MD Referring Provider Active Start: April 21, 2025 End: April 21, 2025 Stacey Marquis CNM Attending Provider Active S tart: April 21, 2025 End: April 21, 2025 Team Status: Inactive Member Role/Relationship Status Dates Dr. Alexus Martinez MD Primary Care Provider Active Start: April 21, 2025 End: April 21, 2025 Stacey Marquis CNM Attending Provider Active S tart: April 21, 2025 End: April 21, 2025 Stacey Marquis CNM Referring Provider Active S tart: April 21, 2025 End: April 21, 2025 Team Status: Inactive Member Role/Relationship Status Dates Dr. Alexus Martinez MD Primary Care Provider Active Start: May 10, 2025 End: May 10, 2025 Dr. Alexus Martinez MD Referring Provider Active Start: May 10, 2025 End: May 10, 2025 HUDSON Alonso Attending Provider Active Start: May 10, 2025 End: May 10, 2025 Goals (unrecognized section and content) Goals may be documented in a n alternate sectionGoals may be documented in an alternate sectionGoals may be documented in an alternate sectionGoals may be documented in an alternate sectionGoals may be documented in an alternate sectionGoals may be documented in an alternate sectionGoals may be documented in an alternate sectionGoals may be documented in an alternate sectionGoals may be documented in an alternate section INFORMATION SOURCE (unrecogn ized section and content) DATE CREATED AUTHOR 05/10/2025 [facility] FOR RECORDS PERTAINING TO PATIENTS WHO ARE OR HAVE BEEN ENROLLED IN A CHEMICAL DEPENDENCY/SUBSTANCEABUSE PROGRAM, SOME INFORMATION MAY BE OMITTED. This clinical summary was aggregated from multiple sources. Caution should be exercised in using it in the provision of clinical care. This summary normalizes information from multiple sources, and as a consequence, information in this document may materially change the coding, format and clinical context of patient data. In addition, data may be omitted in some cases. CLINICAL DECISIONS SHOULD BE BASED ON THE PRIMARY CLINICAL RECORDS. [facility] [employer] [facility]. provides no warranty or guarantee of the accuracy or completeness of information in this document.
== END | disposition home or self-care (01) ==
LOC: BIMLAB 09:54
PROVIDERS: PCP Internal Medicine; Referring Provider Internal Medicine Endocrinology, Diabetes & Metabolism; Visit Provider Internal Medicine Endocrinology, Diabetes & Metabolism
DX: E05.00 Thyrotoxicosis with diffuse goiter without thyrotoxic crisis or storm (principal)
CPT/HCPCS: 36415; 84439; 84443; 84481

== ENCOUNTER → 2025-06-21 | Outpatient (CLI) | payer BC, SELFPAY ==
[2025-06-21 17:24] LABS: Free T3 2.5 pg/mL (2.18-3.98)
== END | disposition home or self-care (01) ==
LOC: BIMLAB 14:50
PROVIDERS: PCP Internal Medicine; Visit Provider Internal Medicine Endocrinology, Diabetes & Metabolism
DX: E05.00 Thyrotoxicosis with diffuse goiter without thyrotoxic crisis or storm (principal)
CPT/HCPCS: 36415; 84439; 84443; 84481

== ENCOUNTER → 2025-07-16 | Outpatient (CLI) | payer BC, SELFPAY ==
[2025-07-16 14:10] LABS: Free T3 2.6 pg/mL (2.18-3.98)
== END | disposition home or self-care (01) ==
LOC: LAB 13:06
PROVIDERS: PCP Internal Medicine; Referring Provider Internal Medicine Endocrinology, Diabetes & Metabolism; Visit Provider Internal Medicine Endocrinology, Diabetes & Metabolism
DX: E05.00 Thyrotoxicosis with diffuse goiter without thyrotoxic crisis or storm (principal)
CPT/HCPCS: 36415; 84439; 84443; 84481

== ENCOUNTER → 2025-09-27 | Outpatient (CLI) | payer BC, SELFPAY ==
[2025-09-27 10:12] LABS: Free T3 2.6 pg/mL (2.18-3.98)
== END | disposition home or self-care (01) ==
LOC: LAB 08:57
PROVIDERS: PCP Internal Medicine; Referring Provider Internal Medicine Endocrinology, Diabetes & Metabolism; Visit Provider Internal Medicine Endocrinology, Diabetes & Metabolism
DX: E05.00 Thyrotoxicosis with diffuse goiter without thyrotoxic crisis or storm (principal)
CPT/HCPCS: 36415; 84439; 84443; 84481